=== PATIENT | male | born 1955 | race African-American/Black ===

== ENCOUNTER 2017-09-11 06:49 | Emergency (ER) | payer SELFPAY ==
--- NOTE | 2017-09-11 07:31 | ER Document Report ---
ED General - General Chief Complaint: Abscess Stated Complaint: ABCESS Time Seen by Provider: 09/11/17 07:30 Mode of Arrival: Ambulatory Information source: Patient TRAVEL OUTSIDE OF THE [place] IN LAST 30 DAYS: No - HPI Notes: 62-year-old man presents to the emergency room for complaints of a hardness to his left buttocks for the last week. Patient states his tried warm compresses [id number] ibuprofen and Tylenol without relief pain is 6 out of 10, throbbing achy. Patient states he has a history of abscesses. Been seen by a provider for this issue. Has not been any recent antibiotics. Denies fevers, chills, chest pain,palpitations, shortness of breath, dyspnea, nausea, vomiting, diarrhea, abdominal pain, hematuria,blurred vision, double vision, loss of vision, speech changes, LH, dizziness, syncope, headaches, wheezing, ST , URI, neck pain, weakness, bowel or bladder dysfunction, saddle anesthesia, numbness or tingling in bilateral upper or lower extremities equally, muscle paralysis, weakness in bilateral upper or lower extremities equally or rash. Denies IV drug use. - Related Data Allergies/Adverse Reactions: No Known Allergies Allergy (Verified 09/11/17 07:47) Past Medical History - General Information source: Patient - Social History Smoking Status: Unknown if Ever Smoked Family History: Reviewed & Not Pertinent - Past Medical History Cardiac Medical History: Reports: Hx Hypertension GI Medical History: Reports: Hx Gastroesophageal Reflux Disease, Hx Hepatitis Musculoskeltal Medical History: Reports Hx Arthritis, Reports Hx Gout - QUESTIONABLE Infectious Medical History: Reports: Hx Hepatitis - Immunizations Immunizations up to date: Yes Hx Diphtheria, Pertussis, Tetanus Vaccination: No Review of Systems - Review of Systems Constitutional: No symptoms reported EENT: No symptoms reported Cardiovascular: No symptoms reported Respiratory: No symptoms reported Gastrointestinal: No symptoms reported Genitourinary: No symptoms reported Male Genitourinary: No symptoms reported Musculoskeletal: No symptoms reported Skin: See HPI Hematologic/Lymphatic: No symptoms reported Neurological/Psychological: No symptoms reported Physical Exam - Vital signs Vitals: Temp Pulse Resp BP Pulse Ox 99.2 F 96 16 183/79 H 98 09/11/17 06:53 09/11/17 06:53 09/11/17 06:53 09/11/17 06:53 09/11/17 06:53 - Notes Notes: PHYSICAL EXAMINATION: GENERAL: Well-appearing, well-nourished and in no acute distress. HEAD: Atraumatic, normocephalic. EYES: Pupils equal round and reactive to light, extraocular movements intact, sclera anicteric, conjunctiva are normal. ENT: Nares patent, oropharynx clear without exudates. Moist mucous membranes. NECK: Normal range of motion, supple without lymphadenopathy LUNGS: Breath sounds clear to auscultation bilaterally and equal. No wheezes rales or rhonchi. HEART: Regular rate and rhythm without murmurs ABDOMEN: Soft, nontender, nondistended abdomen. No guarding, no rebound. No masses appreciated. Musculoskeletal: Normal range of motion, no pitting or edema. No cyanosis. NEUROLOGICAL: Cranial nerves grossly intact. Normal speech, normal gait. Normal sensory, motor exams PSYCH: Normal mood, normal affect. SKIN: Warm, Dry, normal turgor, no rashes or lesions noted. 4 cm x 3 cm area pain, erythema with warmth to touch with noted fluctuance. No surrounding erythema. No streaking or phlebitis noted. No drainage or open wounds. Course - Re-evaluation Re-evalutation: 09/11/17 12:06 62-year-old male presents for evaluation of abscess. Due to fluctuance noted on abscess, I&D is performed, wound culture was obtained approximately 10 cc of purulent drainage was expressed, inoculations broken up,. Packing was placed and gauze dressing placed over it. Advised to take antibiotic as directed, do not go swimming or leg. Apply heat compress 20 minutes on 20 minutes off several times a day. Return to the in 2 days for packing change. I have reevaluated this patient multiple times and no significant life threatening changes, no signs of toxicity, sepsis or peritonitis are noted. The patient and I have discussed the diagnosis and risks, and we agree with discharging home and close follow-up. We also discussed returning to the Emergency Department immediately if new or worsening symptoms occur with the understanding that symptoms and presentations can change. At this time will discharge with return precautions and follow-up recommendations. Verbal discharge instructions given a the bedside and opportunity for questions given. We have discussed the symptoms which are most concerning (e.g., saddle anesthesia, urinary or bowel incontinence or retention, changing or worsening pain) that necessitate immediate return. Medication warnings reviewed. Patient is in agreement with this plan and has verbalized understanding of return precautions and the need for primary care follow-up in the next 24-72 hours. Patient verbalized understanding of plan of care and agree with plan of care. - Vital Signs Vital signs: Temp Pulse Resp BP Pulse Ox 99.2 F 96 16 165/94 H 98 09/11/17 06:53 09/11/17 06:53 09/11/17 06:53 09/11/17 09:00 09/11/17 06:53 Procedures - Incision and Drainage Left Buttock Time completed: 08:20 Type: Simple Anesthetic type: 1% Lidocaine w/epi Blade size: 11 I&D procedure: Chlorprep applied Incision Method: Incision made by scalpel Amount/type of drainage: Purulent drainage Notes: 09/11/17 17:22 Patient given verbal consent for incision and drainage. Patient tolerated procedure without any incident. Discharge - Discharge Clinical Impression: Abscess, Encounter for incision and drainage procedure Condition: Good Disposition: HOME, SELF-CARE Instructions: Abscess ([facility]), Cephalexin ([facility]), Post Incision and Drainage, Trimethoprim-Sulfa ([facility]) Additional Instructions: Abscess You have an abscess (boil). This a pus-forming infection, usually due to staph. Some boils may be left to drain on their own, but most require lancing. From the time the tender lump first appears, it may be three or four days before the abscess is ready to kael. Local heat and rest help at this stage of treatment. An antibiotic may prevent spread of the infection. Once the abscess is opened, packing may be placed into it. This is done so pus is not sealed inside by premature closure of the cavity. The packing will be removed at your follow-up visit or you may be advised to remove it yourself at home. Sometimes this packing must be replaced a few times during healing. The wound will heal with surprisingly little scar. Depending on the size and location of an abscess, healing can take one to four weeks. You may shower and wash the area around the incision site two or three times a day. Antibiotics may be prescribed, but are usually not necessary after an abscess has been drained. If you develop fever, chilling, worsening pain, or increasing swelling in the area, call the doctor or return immediately. Return to the ER 2-3 days for wound packing. Take antibiotics as directed with food. Eat yogurt daily to prevent loose stool. Do not drive, drink alcohol or operate heavy machinery while taking [place]. Return immediately for any new or worsening symptoms. Follow up with primary care provider, call tomorrow to make followup appointment. Prescriptions: Cephalexin Monohydrate [Keflex 500 mg Capsule] 500 mg PO BID #20 capsule Sulfamethoxazole/Trimethoprim [Bactrim Ds Tablet] 1 each PO BID #20 tablet Referrals: COREEN LOPEZ MD [ACTIVE STAFF] - Follow up as needed
[2017-09-11] MEDS ORDERED: LIDOCAINE 1.5%/EPINEPHRINE INJ-PF 30 ML SDV INJ ONE ×2 (08:18→08:49)
[2017-09-11] MEDS ORDERED: HYDROCODONE/ACETAMINOPHEN 5-325 MG (6 TAB/ER DISP) PO PRN (08:19)
[2017-09-11] MEDS ORDERED: CLONIDINE HCL 0.1 MG TABLET PO ONE (08:22)
[2017-09-11 09:57] VITALS: BP 158/65
== END 2017-09-11 09:57 | disposition home or self-care (01) ==
LOC: ER 06:49
DX: L02.31 Cutaneous abscess of buttock (principal); I10 Essential (primary) hypertension
CPT/HCPCS: 99283; 87070; 87205; 87075; 87077; 10060; A6266; J3490

== ENCOUNTER 2017-09-13 09:12 | Emergency (ER) | payer SELFPAY ==
[2017-09-13 09:18] VITALS: BP 165/63
--- NOTE | 2017-09-13 09:54 | ER Document Report ---
HPI - HPI Patient complains to provider of: wound recheck Onset: Last week Onset/Duration: Better Pain Level: Denies Context: Patient states that he is here for packing removal from an abscess he had an incision and drainage performed on here recently. Patient states he has been compliant with taking his antibiotics. Patient denies any fever. Patient denies any history of MRSA. Patient states that the pain has improved and the amount of drainage has started to decrease from the wound. Associated Symptoms: denies: Fever Exacerbated by: Denies Relieved by: Denies Similar symptoms previously: Yes Recently seen / treated by doctor: Yes - ROS ROS below otherwise negative: Yes Systems Reviewed and Negative: Yes All other systems reviewed and negative - CONSTITUTIONAL Constitutional: DENIES: Fever, Chills - NEURO Neurology: DENIES: Weakness - GASTROINTESTINAL Gastrointestinal: DENIES: Nausea - DERM Skin Color: Normal Notes: Abscess to buttock Past Medical History - General Information source: Patient - Social History Smoking Status: Current Every Day Smoker Smoking Education Provided: Yes Frequency of alcohol use: Occasional Drug Abuse: None Occupation: Retired Family History: Reviewed & Not Pertinent - Past Medical History Cardiac Medical History: Reports: Hx Hypertension Renal/ Medical History: Denies: Hx Peritoneal Dialysis GI Medical History: Reports: Hx Gastroesophageal Reflux Disease, Hx Hepatitis Musculoskeltal Medical History: Reports Hx Arthritis, Reports Hx Gout - QUESTIONABLE Infectious Medical History: Reports: Hx Hepatitis Surgical Hx: Negative - Immunizations Immunizations up to date: Yes Hx Diphtheria, Pertussis, Tetanus Vaccination: No Vertical Provider Document - CONSTITUTIONAL Agree With Documented VS: Yes Exam Limitations: No Limitations General Appearance: WD/WN, No Apparent Distress - INFECTION CONTROL TRAVEL OUTSIDE OF THE [place] IN LAST 30 DAYS: No - HEENT HEENT: Atraumatic, Normocephalic - NECK Neck: Normal Inspection - RESPIRATORY Respiratory: No Respiratory Distress - BACK Back: Normal Inspection - MUSCULOSKELETAL/EXTREMETIES Musculoskeletal/Extremeties: MAEW - NEURO Level of Consciousness: Awake, Alert, Appropriate Motor/Sensory: No Motor Deficit - DERM Integumentary: Warm, Dry, Abscess - Resolving abscess to left buttock, minimal induration surrounding opening. Packing removed, minimal purulent drainage noted to dressing. No surrounding erythema. Course - Re-evaluation Re-evalutation: 09/13/17 09:49 Patient with resolving abscess, patient encouraged to finish out his antibiotics as previously prescribed. Discussed daily wound care. Discussed worsening symptoms that patient should return immediately for. - Vital Signs Vital signs: Temp Pulse Resp BP Pulse Ox 98.5 F 70 18 165/63 H 100 09/13/17 09:17 09/13/17 09:17 09/13/17 09:17 09/13/17 09:17 09/13/17 09:17 Discharge - Discharge Clinical Impression: Encounter for wound re-check Condition: Stable Disposition: HOME, SELF-CARE Instructions: Abscess ([facility]) Additional Instructions: Return immediately for any new or worsening symptoms Followup with your primary care provider, call tomorrow to make a followup appointment Continue taking your antibiotics as previously prescribed Keep wound covered as it continues to heal Forms: Smoking Cessation Education Referrals: [facility] [Provider Group] - Follow up as needed
== END 2017-09-13 10:08 | disposition home or self-care (01) ==
LOC: ER 09:12
DX: Z48.01 Encounter for change or removal of surgical wound dressing (principal); L02.31 Cutaneous abscess of buttock; I10 Essential (primary) hypertension; F17.200 Nicotine dependence, unspecified, uncomplicated
CPT/HCPCS: 99282

== ENCOUNTER 2018-02-07 07:53 | Emergency (ER) | payer SELFPAY ==
[2018-02-07 08:52] LABS: HEMATOCRIT 34.7 % (37.9-51.0); HEMOGLOBIN 11.6 g/dL (13.5-17.0); MEAN CORPUSCULAR HEMOGLOBIN 26.8 pg (27.0-33.4); MEAN CORPUSCULAR HGB CONC 33.5 g/dL (32.0-36.0); MEAN CORPUSCULAR VOLUME 80 fl (80-97); RED BLOOD COUNT 4.35 10^6/uL (4.35-5.55); RED CELL DISTRIBUTION WIDTH 20.6 % (11.5-14.0); WHITE BLOOD COUNT 6.1 10^3/uL (4.0-10.5)
[2018-02-07 08:55] LABS: APPEARANCE,URINE CLEAR; BILIRUBIN,URINE SMALL (NEGATIVE); COLOR,URINE AMBER; GLUCOSE, URINE NEGATIVE (NEGATIVE); KETONES,URINE NEGATIVE (NEGATIVE); LEUKOCYTE ESTERASE,URINE NEGATIVE (NEGATIVE); NITRITE,URINE NEGATIVE (NEGATIVE); PROTEIN,URINE 30 mg/dL (NEGATIVE)
--- NOTE | 2018-02-07 09:17 | ER Document Report ---
ED GI/ - General Information source: Patient TRAVEL OUTSIDE OF THE [place] IN LAST 30 DAYS: No <SANDRA OROPEZA - Last Filed: 02/07/18 09:25> <BRUCE GENAO - Last Filed: 02/07/18 15:45> - General Chief Complaint: Abdominal Pain Stated Complaint: ABDOMINAL PAIN/URINARY ISSUE Time Seen by Provider: 02/07/18 09:10 Notes: 63-year-old male who presents to the emergency department today with complaints of abdominal pain that began yesterday. Patient states he had a bowel movement before going to bed last night and he noticed that it was darker than it usually is. Patient states he feels bloated. Patient states the pain comes in waves and it is located in his lower abdomen. Patient states when he urinated here for a urine sample he noticed that his urine was very dark in color as well. Patient admits to being very noncompliant with his hypertension medicine stating it has been at least several days since he last took his medicine. ( SANDRA OROPEZA) - Related Data Allergies/Adverse Reactions: No Known Allergies Allergy (Verified 09/13/17 09:15) Past Medical History - General Information source: Patient - Social History Smoking Status: Current Every Day Smoker Cigarette use (# per day): Yes Chew tobacco use (# tins/day): No Frequency of alcohol use: Heavy - Alcoholic hepatitis Drug Abuse: None Lives with: Family Family History: Reviewed & Not Pertinent Patient has suicidal ideation: No Patient has homicidal ideation: No - Past Medical History Cardiac Medical History: Reports: Hx Hypertension GI Medical History: Reports: Hx Gastroesophageal Reflux Disease, Hx Hepatitis Musculoskeletal Medical History: Reports Hx Arthritis, Reports Hx Gout - QUESTIONABLE Infectious Medical History: Reports: Hx Hepatitis - Immunizations Immunizations up to date: Yes Hx Diphtheria, Pertussis, Tetanus Vaccination: No <SANDRA OROPEZA - Last Filed: 02/07/18 09:25> Review of Systems - Review of Systems Constitutional: No symptoms reported EENT: No symptoms reported Cardiovascular: No symptoms reported Respiratory: No symptoms reported Gastrointestinal: See HPI, Abdomen distended, Abdominal pain, Other - dark stool Genitourinary: See HPI, Other - dark urine Male Genitourinary: No symptoms reported Musculoskeletal: No symptoms reported Skin: No symptoms reported Hematologic/Lymphatic: No symptoms reported Neurological/Psychological: No symptoms reported -: Yes All other systems reviewed and negative <SANDRA OROPEZA - Last Filed: 02/07/18 09:25> Physical Exam <SANDRA OROPEZA - Last Filed: 02/07/18 09:25> <BRUCE GENAO - Last Filed: 02/07/18 15:45> - Vital signs Vitals: Temp Pulse Resp BP Pulse Ox 98.0 F 107 H 20 172/96 H 100 02/07/18 08:00 02/07/18 08:00 02/07/18 08:00 02/07/18 08:00 02/07/18 08:00 - Notes Notes: Physical Exam: General: Alert, appears well, EtOH odor on breath. HEENT: Normocephalic. Atraumatic. PERRL. Extraocular movements intact. Oropharynx clear. Neck: Supple. Non-tender. Respiratory: No respiratory distress. Clear and equal breath sounds bilaterally. Cardiovascular: Regular rate and rhythm. Abdominal: Mild abdominal distension. Hyperresonant percussive sounds on left side of abdomen, dull to percuss the right side of the abdomen. Normal Bowel Sounds. Back: Non-tender. No deformity or step off. Extremities: Moves all four extremities. Upper extremities: Normal inspection. Normal ROM. Lower extremities: Normal inspection. No edema. Normal ROM. Neurological: Normal cognition. AAOx4. Normal speech. Psychological: Normal affect. Normal Mood. Skin: Warm. Dry. Normal color. (SANDRA OROPEZA) Course - Laboratory Result Diagrams: 02/07/18 08:25 02/07/18 08:25 <SANDRA OROPEZA - Last Filed: 02/07/18 09:25> - Laboratory Result Diagrams: 02/07/18 08:25 02/07/18 09:30 - Diagnostic Test Radiology reviewed: Reports reviewed - Ultrasound shows some fluid in the right upper quadrant and severely cirrhotic liver. <BRUCE GENAO - Last Filed: 02/07/18 15:45> - Vital Signs Vital signs: Temp Pulse Resp BP Pulse Ox 98.0 F 107 H 15 145/80 H 99 02/07/18 08:00 02/07/18 08:00 02/07/18 14:01 02/07/18 14:00 02/07/18 14:01 - Laboratory Laboratory results interpreted by me: 02/07/18 02/07/18 02/07/18 08:25 08:25 08:25 Hgb 11.6 L Hct 34.7 L MCH 26.8 L RDW 20.6 H Plt Count 90 L Band Neutrophils % 1 L PT 18.4 H Potassium BUN Calcium Magnesium Total Bilirubin Direct Bilirubin AST Alkaline Phosphatase Albumin Urine Protein 30 H Urine Bilirubin SMALL H Urine Urobilinogen 4.0 H 02/07/18 09:30 Hgb Hct MCH RDW Plt Count Band Neutrophils % PT Potassium 3.0 L* BUN 6 L Calcium 8.2 L Magnesium 1.1 L* Total Bilirubin 3.8 H Direct Bilirubin 2.5 H AST 146 H Alkaline Phosphatase 193 H Albumin 3.2 L Urine Protein Urine Bilirubin Urine Urobilinogen Discharge <SANDRA OROPEZA - Last Filed: 02/07/18 09:25> <BRUCE GENAO - Last Filed: 02/07/18 15:45> - Discharge Clinical Impression: Alcoholic cirrhosis of liver with ascites, Elevated bilirubin Abdominal pain Qualifiers: Abdominal location: lower abdomen, unspecified Qualified Code(s): R10.30 - Lower abdominal pain, unspecified High blood pressure Qualifiers: Hypertension type: essential hypertension Qualified Code(s): I10 - Essential ( primary) hypertension Condition: Stable Disposition: HOME, SELF-CARE Additional Instructions: Abdominal Pain: There are many causes of abdominal pain. Pain can mean a serious problem requiring surgery (such as appendicitis). It can also be an innocent problem that goes away on its own (such as a viral infection). Often, time must pass to determine the cause of pain. The physician does not feel that hospitalization is necessary, at present. Things may change within the next 24 hours. Call the doctor or come back for re- examination if any problems occur, such as: (1) Pain that becomes more severe, steady, or becomes concentrated in one specific area. Also, pain that is more severe with movement or coughing. (2) Vomiting that persists or becomes more frequent. (3) Blood in the vomitus, urine, or bowel movements. Blood in the stool may have a tarry or black appearance. (4) Shaking chills or fever greater than 100 degrees F. (5) The abdomen becomes more distended or swollen. (6) Bowel movements cease. (7) Failure to improve as expected. High Blood Pressure: When your blood pressure was taken today it was elevated. Sometimes, stress or illness causes a temporary elevation of your blood pressure. We suggest that you get your blood pressure measured three more times during the next few days to see if this is more than a temporary abnormality. If your blood pressure is greater than 150/90 on each occasion, you must have treatment. If left untreated or inadequately treated, hypertension greatly enhances your risk for developing heart disease and strokes. Please don't ignore this problem. Cirrhosis: You have cirrhosis of the liver. The liver tissue is replaced by scar tissue. Most often, this is caused by alcoholism or chronic hepatitis. There may be no symptoms in early cirrhosis. Later, patients develop jaundice, swelling, and fluid in the abdomen. There is no cure for cirrhosis. Only the symptoms can be treated. Edema and fluid in the abdomen can be treated with diuretics (water pills). If cirrhosis is severe, you'll be restricted to a low-protein diet. Don't drink any alcohol. When medicines are prescribed for you, be sure the doctor understands you have cirrhosis. Call the doctor if you become increasingly yellow, vomit repeatedly, begin to bruise or bleed easily, or have worsening abdominal pain or increasing abdominal size. Your lab tests today show that your liver is beginning to fail. This is most likely due to your chronic alcohol abuse. If you stop drinking now, the liver has the ability to regenerate itself. You are close to reaching the point where your liver will not be able to recover. The urine appearing dark is most likely due to the elevated bilirubin which is a result of the liver failing. Your blood pressure was quite high today, and it has been on previous visits. You should follow-up with your primary care provider to ensure that your blood pressure is being adequately managed, and to discuss a detox program to help you stop drinking before your liver has been completely destroyed. RETURN TO THE EMERGENCY ROOM IF ANY NEW OR WORSENING SYMPTOMS. Referrals: LAINEY CARROLL DO [Primary Care Provider] - Follow up as needed Scribe Attestation: 02/07/18 09:53 I personally performed the services described in the documentation, reviewed and edited the documentation which was dictated to the scribe in my presence, and it accurately records my words and actions. (BRUCE GENAO) Scribe Documentation - Scribe Written by Maile:: Maile Faustin, 02/07/2018 0923 acting as scribe for :: Arcelia <SANDRA OROPEZA - Last Filed: 02/07/18 09:25>
[2018-02-07 09:33] LABS: INTERNATIONAL RATION (INR) 1.45; PROTHROMBIN TIME 18.4 SEC (11.4-15.4)
[2018-02-07 09:35] LABS: PLATELET COUNT 90 10^3/uL (150-450)
[2018-02-07 09:40] LABS: ABSOLUTE LYMPHOCYTES# (MANUAL) 2.1 10^3/uL (0.5-4.7); ABSOLUTE MONOCYTES # (MANUAL) 0.3 10^3/uL (0.1-1.4); ABSOLUTE NEUTROPHILS# (MANUAL) 3.7 10^3/uL (1.7-8.2); ANISOCYTOSIS 2+; BAND NEUTROPHILS % (MANUAL) 1 % (3-5); BASOPHILS % (MANUAL) 1 % (0-2); EOSINOPHILS % (MANUAL) 0 % (0-6); HYPOCHROMASIA 3+; LYMPHOCYTES % (MANUAL) 34 % (13-45); MONOCYTES % (MANUAL) 5 % (3-13); PLATELET COMMENT DECREASED; PLATELET LARGE PRESENT; POLYCHROMASIA SLIGHT; SEGMENTED NEUTROPHILS % (MAN) 59 % (42-78); TARGET CELLS 3+; TOTAL CELLS COUNTED 100
[2018-02-07] MEDS ORDERED: ONDANSETRON HCL INJ/PF 4 MG/2 ML SDV IV ONE (09:59)
[2018-02-07 10:03] LABS: ALANINE AMINOTRANSFERASE 37 U/L (21-72); ALBUMIN 3.2 g/dL (3.5-5.0); ALCOHOL 83 mg/dL (NONE DETECTED); ALKALINE PHOSPHATASE 193 U/L (38-126); ANION GAP 14 (5-19); ASPARTATE AMINO TRANSFERASE 146 U/L (17-59); BILIRUBIN,DIRECT 2.5 mg/dL (0.0-0.4); BILIRUBIN,TOTAL 3.8 mg/dL (0.2-1.3); BLOOD UREA NITROGEN 6 mg/dL (7-20); CALCIUM 8.2 mg/dL (8.4-10.2); CARBON DIOXIDE 26 mmol/L (22-30); CHLORIDE 105 mmol/L (98-107); GLUCOSE 76 mg/dL (75-110); LIPASE 262.8 U/L (23-300); SODIUM 144.7 mmol/L (137-145)
[2018-02-07] MEDS ORDERED: POTASSIUM CHLORIDE 20 MEQ/15 ML UDCUP PO ONE (10:08)
[2018-02-07] MEDS ORDERED: MAGNESIUM SULFATE/D5W 1 GM/100 ML RTUPB IV ONE (10:08)
--- NOTE | 2018-02-07 11:05 | RADIOLOGY REPORT (SQ) ---
EXAM DESCRIPTION: ACUTE ABDOMEN SERIES COMPLETED DATE/TIME: 02/07/2018 10:14 am REASON FOR STUDY: Abdominal pain with bloating COMPARISON: CT abdomen pelvis 04/18/2014, 06/01/2015, 12/15/2015 NUMBER OF VIEWS: Three views. TECHNIQUE: Frontal chest, supine abdomen and upright abdomen radiographic images acquired. LIMITATIONS: None. FINDINGS: CHEST: Lungs clear of infiltrates. Cardiac silhouette size, loy unremarkable FREE AIR: None. No abnormal gas collections. BOWEL GAS PATTERN: Nonobstructive pattern. No dilated loops or air fluid levels. CALCIFICATIONS: No suspicious calcifications. HARDWARE: None in the abdomen. SOFT TISSUES: No gross mass or suggestion of organomegaly. BONES: No acute fracture. No worrisome bone lesions. OTHER: No other significant finding. IMPRESSION: NO RADIOGRAPHIC EVIDENCE FOR ACUTE ABDOMINAL DISEASE. TECHNICAL DOCUMENTATION: JOB ID: [id number] [employer]- All Rights Reserved Reading location - IP/workstation name: [email or web address]
--- NOTE | 2018-02-07 15:37 | RADIOLOGY REPORT (SQ) ---
EXAM DESCRIPTION: U/S ABDOMEN LIMITED W/O DOP COMPLETED DATE/TIME: 02/07/2018 3:20 pm REASON FOR STUDY: Elevated bilirubin COMPARISON: CT abdomen pelvis 04/18/2014, 01/13/2015, 06/01/2015, 12/15/2015 TECHNIQUE: Dynamic and static grayscale images acquired of the abdomen and recorded on PACS. Additio nal selected color Doppler and spectral images recorded. LIMITATIONS: Midline bowel gas FINDINGS: PANCREAS: Midline pancreas unremarkable LIVER: Coarse echotexture with increased echogenicity from diffuse hepatocellular disease. Difficult to penetrate with the ultrasound energy from fatty infiltration. No gross masses. No intrahepatic biliary ductal dilatation. Antegrade portal venous flow LIVER VASCULATURE: Normal directional flow of the main portal vein and hepatic veins. GALLBLADDER: Pericholecystic fluid is present between the gallbladder and liver. There is a small am ount of right upper quadrant ascites. No gallstones. Moderate diffuse gallbladder wall thickening, nonspecific in the setting of ascites ULTRASOUND-DETECTED AREVALO'S SIGN: Negative. INTRAHEPATIC DUCTS AND COMMON DUCT: CBD and intrahepatic ducts normal caliber. No filling defects. INFERIOR VENA CAVA: Not well seen due to limited acoustic window through the liver AORTA: Not well seen due to midline bowel gas RIGHT KIDNEY: Normal size. Normal echogenicity. No solid or suspicious masses. No hydronephrosis. No calcifications. PERITONEAL AND RIGHT PLEURAL SPACE: Small amount of right upper quadrant free fluid. OTHER: Findings discussed with Dr. Paniagua IMPRESSION: Small amount of ascites in the right upper quadrant Echogenic liver with coarse echotexture from diffuse hepatocellular disease. Gallbladder wall thickening and pericholecystic fluid are nonspecific in the setting of ascites and c irrhosis. No gallstones. No biliary ductal dilatation. TECHNICAL DOCUMENTATION: JOB ID: [id number]- All Rights Reserved Reading location - IP/workstation name: [email or web address]
[2018-02-07 16:18] VITALS: BP 149/82
[2018-02-08 09:35] LABS: PATH REVIEW PATHOLOGIST REVIEWED
== END 2018-02-07 16:17 | disposition home or self-care (01) ==
LOC: ER 07:53
DX: K70.31 Alcoholic cirrhosis of liver with ascites (principal); R10.30 Lower abdominal pain, unspecified; I10 Essential (primary) hypertension; K21.9 Gastro-esophageal reflux disease without esophagitis; M19.90 Unspecified osteoarthritis, unspecified site; F17.200 Nicotine dependence, unspecified, uncomplicated
CPT/HCPCS: 99284; 96375; 96365; 36415; 80307; 83690; 83735; 85025; 85610; 80053; 81001; 74022; 76705; J3475; J2405

== ENCOUNTER 2018-11-05 14:59 | Emergency (ER) | payer SELFPAY ==
--- NOTE | 2018-11-05 16:24 | ER Document Report ---
ED Medical Screen (RME) - General Chief Complaint: Weakness Stated Complaint: WEAKNESS Time Seen by Provider: 11/05/18 16:23 Primary Care Provider: LAINEY CARROLL DO [Primary Care Provider] - Follow up as needed Mode of Arrival: Wheelchair Information source: Patient Notes: Patient is a 63-year-old male, alcoholic, who presents with generalized weakness, including fall today. Patient reports pain everywhere. TRAVEL OUTSIDE OF THE [place] IN LAST 30 DAYS: No - Related Data Allergies/Adverse Reactions: No Known Allergies Allergy (Verified 11/05/18 15:15) Past Medical History - General Information source: Patient - Past Medical History Cardiac Medical History: Reports: Hx Hypertension Renal/ Medical History: Denies: Hx Peritoneal Dialysis GI Medical History: Reports: Hx Gastroesophageal Reflux Disease, Hx Hepatitis Musculoskeltal Medical History: Reports Hx Arthritis, Reports Hx Gout - QUESTIONABLE Infectious Medical History: Reports: Hx Hepatitis - Immunizations Immunizations up to date: Yes Hx Diphtheria, Pertussis, Tetanus Vaccination: No Review of Systems - Review of Systems Constitutional: See HPI Musculoskeletal: See HPI Neurological/Psychological: See HPI Physical Exam - Vital signs Vitals: Temp Pulse Resp BP Pulse Ox 98.4 F 105 H 16 140/53 H 97 11/05/18 15:44 11/05/18 15:44 11/05/18 15:44 11/05/18 15:44 11/05/18 15:44 - Notes Notes: PHYSICAL EXAMINATION: GENERAL: Chronically ill-appearing and in no acute distress. LUNGS: CTAB and equal. No wheezes rales or rhonchi. HEART: Regular rate and rhythm without murmurs Course - Vital Signs Vital signs: Temp Pulse Resp BP Pulse Ox 98.4 F 105 H 16 140/53 H 97 11/05/18 15:44 11/05/18 15:44 11/05/18 15:44 11/05/18 15:44 11/05/18 15:44 - Laboratory Result Diagrams: 11/05/18 16:40 11/05/18 16:40 Laboratory results interpreted by me: 11/05/18 11/05/18 11/05/18 16:40 16:40 16:40 RBC 2.73 L Hgb 5.2 L Hct 17.8 L MCV 65 L MCH 19.0 L MCHC 29.2 L RDW 20.7 H Sodium 133.8 L Potassium 3.2 L Carbon Dioxide 20 L BUN 6 L Glucose 118 H Calcium 8.1 L Total Bilirubin 2.2 H Direct Bilirubin 1.4 H AST 113 H Alkaline Phosphatase 137 H Creatine Kinase 186 H Albumin 2.9 L Lipase 644.6 H Urine Protein >=500 H Urine Glucose (UA) 50 H Urine Blood LARGE H Crossmatch 11/05/18 19:56 RBC Hgb Hct MCV MCH MCHC RDW Sodium Potassium Carbon Dioxide BUN Glucose Calcium Total Bilirubin Direct Bilirubin AST Alkaline Phosphatase Creatine Kinase Albumin Lipase Urine Protein Urine Glucose (UA) Urine Blood Crossmatch See Detail Doctor's Discharge - Discharge Clinical Impression: Anemia, Elevated bilirubin, Elevated LFTs, Hematuria, Elevated lipase, Medical non-compliance, Hypokalemia Condition: Stable Disposition: [facility] Referrals: LAINEY CARROLL DO [Primary Care Provider] - Follow up as needed
[2018-11-05 17:18] LABS: HEMATOCRIT 17.8 % (37.9-51.0); MEAN CORPUSCULAR HGB CONC 29.2 g/dL (32.0-36.0); PLATELET COUNT 215 10^3/uL (150-450); RED BLOOD COUNT 2.73 10^6/uL (4.35-5.55); RED CELL DISTRIBUTION WIDTH 20.7 % (11.5-14.0); WHITE BLOOD COUNT 6.3 10^3/uL (4.0-10.5)
[2018-11-05 17:31] LABS: ALANINE AMINOTRANSFERASE 42 U/L (21-72); ALBUMIN 2.9 g/dL (3.5-5.0); ALKALINE PHOSPHATASE 137 U/L (38-126); ANION GAP 11 (5-19); ASPARTATE AMINO TRANSFERASE 113 U/L (17-59); BILIRUBIN,DIRECT 1.4 mg/dL (0.0-0.4); BILIRUBIN,TOTAL 2.2 mg/dL (0.2-1.3); BLOOD UREA NITROGEN 6 mg/dL (7-20); CALCIUM 8.1 mg/dL (8.4-10.2); CARBON DIOXIDE 20 mmol/L (22-30); CHLORIDE 103 mmol/L (98-107); CREATINE KINASE 186 U/L (55-170); GLUCOSE 118 mg/dL (75-110); POTASSIUM 3.2 mmol/L (3.6-5.0); TOTAL PROTEIN 7.4 g/dL (6.3-8.2)
[2018-11-05 17:33] LABS: HEMOGLOBIN 5.2 g/dL (13.5-17.0)
--- NOTE | 2018-11-05 17:33 | RADIOLOGY REPORT (SQ) ---
EXAM DESCRIPTION: CHEST SINGLE VIEW COMPLETED DATE/TIME: 11/05/2018 5:05 pm REASON FOR STUDY: cp COMPARISON: None. EXAM PARAMETERS: NUMBER OF VIEWS: One view. TECHNIQUE: Single frontal radiographic view of the chest acquired. RADIATION DOSE: NA LIMITATIONS: None. FINDINGS: LUNGS AND PLEURA: No opacities, masses or pneumothorax. No pleural effusion. MEDIASTINUM AND HILAR STRUCTURES: No masses. Contour normal. HEART AND VASCULAR STRUCTURES: Heart normal in size. Normal vasculature. BONES: No acute findings. HARDWARE: None in the chest. OTHER: No other significant finding. IMPRESSION: NO ACUTE RADIOGRAPHIC FINDING IN THE CHEST. TECHNICAL DOCUMENTATION: JOB ID: [id number] [employer]- All Rights Reserved Reading location - IP/workstation name: [email or web address]
[2018-11-05 17:40] LABS: BILIRUBIN,URINE NEGATIVE (NEGATIVE); GLUCOSE, URINE 50 mg/dL (NEGATIVE); KETONES,URINE NEGATIVE (NEGATIVE); LEUKOCYTE ESTERASE,URINE NEGATIVE (NEGATIVE); NITRITE,URINE NEGATIVE (NEGATIVE); PROTEIN,URINE >=500 mg/dL (NEGATIVE); URINE SPECIFIC GRAVITY 1.015; UROBILINOGEN,URINE NEGATIVE mg/dL (<2.0)
[2018-11-05 17:41] LABS: APPEARANCE,URINE TURBID; COLOR,URINE RED
[2018-11-05 17:43] LABS: ABSOLUTE MONOCYTES # (MANUAL) 0.4 10^3/uL (0.1-1.4); BASOPHILS % (MANUAL) 0 % (0-2); CREATINE KINASE MB 0.26 ng/mL (<4.55); EOSINOPHILS % (MANUAL) 0 % (0-6); LYMPHOCYTES % (MANUAL) 30 % (13-45); MONOCYTES % (MANUAL) 6 % (3-13); NUCLEATED RED BLOOD CELLS 1 /100 WBC (0); SEGMENTED NEUTROPHILS % (MAN) 62 % (42-78); TOTAL CELLS COUNTED 100
[2018-11-05 17:45] LABS: TROPONIN I < 0.012 ng/mL
[2018-11-05 17:48] LABS: ANISOCYTOSIS 2+; HYPOCHROMASIA 3+; MEAN CORPUSCULAR VOLUME 65 fl (80-97); POIKILOCYTOSIS SLIGHT; POLYCHROMASIA 1+; SCHISTOCYTES SLIGHT; TARGET CELLS 2+; TEAR DROP CELLS SLIGHT
[2018-11-05 17:49] LABS: PLATELET COMMENT ADEQUATE
[2018-11-05] MEDS ORDERED: NORMAL SALINE 250 ML IV PRN ×2 (19:12)
--- NOTE | 2018-11-05 19:34 | ER Document Report ---
ED General - General Chief Complaint: Weakness Stated Complaint: WEAKNESS Time Seen by Provider: 11/05/18 16:23 Primary Care Provider: LAINEY CARROLL DO [Primary Care Provider] - Follow up as needed TRAVEL OUTSIDE OF THE [place] IN LAST 30 DAYS: No - HPI Notes: Patient is a 63-year-old male that presents to the emergency department for chief complaint of hematuria and generalized weakness. Patient reports increasing fatigue over the last few months but significantly worse in the last 3 days. He states for the last week he has had large blood clots passing in his urine. He does have a history of hematuria and states he saw a urologist about 6 months ago but does not know what he was told and did not follow-up. Patient states today he felt so fatigued while walking he co llapsed down to the ground. He denied head injury during the fall. He states he currently is not having any pain. He denies any black or bloody stools. He does drink alcohol daily and reports his last drink was yesterday. Patient denies history of esophageal varices. He does believe he has had bleeding in his GI tract before but does not believe he is having any bleeding currently. He denies any nausea vomiting or hematemesis. He denies cough and congestion. Patient states he has not seen a primary care doctor in a long time and has been out of his blood pressure medication for the last few months at least. Past Medical History: Alcoholism, hypertension Past Surgical History: Reviewed in chart Social History: Chronic alcoholism. Denies drug use Family History: Reviewed and noncontributory for presenting illness Allergies: Reviewed, see documented allergy list. REVIEW OF SYSTEMS: CONSTITUTIONAL : No fever No chills No diaphoresis No recent illness EENT: No vision changes No congestion No sore throat CARDIOVASCULAR: No chest pain No palpitations RESPIRATORY: shortness of breath No cough No difficulty breathing GASTROINTESTINAL: No abdominal pain No nausea No vomiting No diarrhea GENITOURINARY: No dysuria hematuria No difficulty urinating MUSCULOSKELETAL: No back pain No leg pain No arm pain SKIN: No rashes No lesions LYMPHATIC: No swollen, enlarged glands. NEUROLOGICAL: No lightheadedness No headache No weakness No paresthesias PSYCHIATRIC: No anxiety No depression PHYSICAL EXAMINATION: Vital signs reviewed, nursing noted reviewed. GENERAL: Well-appearing, thin, and in no acute distress. HEAD: Atraumatic, normocephalic. EYES: Eyes appear normal, extraocular movements intact, sclera anicteric, conj unctiva are normal. ENT: nares patent, oropharynx clear without exudates. Mildly dry mucous membra kristian. NECK: Normal range of motion, supple without lymphadenopathy LUNGS: Breath sounds clear to auscultation bilaterally and equal. No wheezes rales or rhonchi. HEART: Tachycardic rate and regular pale rhythm without murmurs ABDOMEN: Soft, nontender, normoactive bowel sounds. No rebound, guarding, or rigidity. No masses appreciated. EXTREMITIES: Nontender, good range of motion, no pitting or edema. : Small nonthrombosed and nonbleeding external hemorrhoid, light brown stool Hemoccult negative NEUROLOGICAL: No focal neurological deficits. Moves all extremities spontaneously Motor and sensory grossly intact on exam. PSYCH: Normal mood, normal affect. SKIN: Warm, Dry, normal turgor, pale - Related Data Allergies/Adverse Reactions: No Known Allergies Allergy (Verified 11/05/18 15:15) Past Medical History - Social History Smoking Status: Never Smoker Chew tobacco use (# tins/day): No Frequency of alcohol use: None Drug Abuse: None Family History: Reviewed & Not Pertinent Patient has suicidal ideation: No Patient has homicidal ideation: No - Past Medical History Cardiac Medical History: Reports: Hx Hypertension Renal/ Medical History: Denies: Hx Peritoneal Dialysis GI Medical History: Reports: Hx Gastroesophageal Reflux Disease, Hx Hepatitis Musculoskeletal Medical History: Reports Hx Arthritis, Reports Hx Gout - QUESTIONABLE Infectious Medical History: Reports: Hx Hepatitis - Immunizations Immunizations up to date: Yes Hx Diphtheria, Pertussis, Tetanus Vaccination: No Physical Exam - Vital signs Vitals: Temp Pulse Resp BP Pulse Ox 98.4 F 105 H 16 140/53 H 97 11/05/18 15:44 11/05/18 15:44 11/05/18 15:44 11/05/18 15:44 11/05/18 15:44 Course - Re-evaluation Re-evalutation: 11/05/18 19:32 Vitals reviewed. Nursing notes reviewed. Patient blood work shows a significant anemia at 5.2. This is dramatic change from previous I have had on record. He denies any symptoms of GI bleeding and does have a negative Hemoccult in the emergency room. Patient has a large amount of blood in his urine and has been passing blood clots in his urine for the last week. I do believe at this point this is his source of bleeding causing his severe anemia. Patient is mildly tachycardic with dry mucous membranes. He was given 3 units packed red blood cells for his anemia. He is otherwise awake and mentating appropriately without delirium or altered mentation. He denies any history of alcohol withdrawal seizures or delirium. Patient is not currently in acute alcohol withdrawal. There is no urology available at this facility and patient is requiring transfer for urological evaluation of his significant hematuria. Laboratory 11/05/18 11/05/18 11/05/18 16:40 16:40 16:40 WBC 6.3 RBC 2.73 L Hgb 5.2 L Hct 17.8 L MCV 65 L MCH 19.0 L MCHC 29.2 L RDW 20.7 H Plt Count 215 Total Counted 100 Seg Neutrophils % Not Reportable Seg Neuts % (Manual) 62 Lymphocytes % Not Reportable Lymphocytes % (Manual) 30 Atypical Lymphs % 2 Monocytes % Not Reportable Monocytes % (Manual) 6 Eosinophils % Not Reportable Eosinophils % (Manual) 0 Basophils % Not Reportable Basophils % (Manual) 0 Absolute Neutrophils Not Reportable Abs Neuts (Manual) 3.9 Absolute Lymphocytes Not Reportable Abs Lymphs (Manual) 2.0 Absolute Monocytes Not Reportable Abs Monocytes (Manual) 0.4 Absolute Eosinophils Not Reportable Absolute Eos (Manual) 0.0 Absolute Basophils Not Reportable Abs Basophils (Manual) 0.0 Nucleated RBCs 1 Platelet Comment ADEQUATE Polychromasia 1+ Hypochromasia 3+ Poikilocytosis SLIGHT Anisocytosis 2+ Microcytosis 3+ Target Cells 2+ Tear Drop Cells SLIGHT Schistocytes SLIGHT Sodium 133.8 L Potassium 3.2 L Chloride 103 Carbon Dioxide 20 L Anion Gap 11 BUN 6 L Creatinine 0.89 Est GFR ( Amer) > 60 Est GFR (Non-Af Amer) > 60 Glucose 118 H Calcium 8.1 L Total Bilirubin 2.2 H Direct Bilirubin 1.4 H Neonat Total Bilirubin Not Reportable Neonat Direct Bilirubin Not Reportable Neonat Indirect Bili Not Reportable AST 113 H ALT 42 Alkaline Phosphatase 137 H Creatine Kinase 186 H CK-MB (CK-2) 0.26 Troponin I < 0.012 Total Protein 7.4 Albumin 2.9 L Lipase 644.6 H Urine Color Urine Appearance Urine pH Ur Specific [place] Urine Protein Urine Glucose (UA) Urine Ketones Urine Blood Urine Nitrite Urine Bilirubin Urine Urobilinogen Ur Leukocyte Esterase Urine WBC (Auto) Urine RBC (Auto) Urine Ascorbic Acid 11/05/18 16:40 WBC RBC Hgb Hct MCV MCH MCHC RDW Plt Count Total Counted Seg Neutrophils % Seg Neuts % (Manual) Lymphocytes % Lymphocytes % (Manual) Atypical Lymphs % Monocytes % Monocytes % (Manual) Eosinophils % Eosinophils % (Manual) Basophils % Basophils % (Manual) Absolute Neutrophils Abs Neuts (Manual) Absolute Lymphocytes Abs Lymphs (Manual) Absolute Monocytes Abs Monocytes (Manual) Absolute Eosinophils Absolute Eos (Manual) Absolute Basophils Abs Basophils (Manual) Nucleated RBCs Platelet Comment Polychromasia Hypochromasia Poikilocytosis Anisocytosis Microcytosis Target Cells Tear Drop Cells Schistocytes Sodium Potassium Chloride Carbon Dioxide Anion Gap BUN Creatinine Est GFR ( Amer) Est GFR (Non-Af Amer) Glucose Calcium Total Bilirubin Direct Bilirubin Neonat Total Bilirubin Neonat Direct Bilirubin Neonat Indirect Bili AST ALT Alkaline Phosphatase Creatine Kinase CK-MB (CK-2) Troponin I Total Protein Albumin Lipase Urine Color RED Urine Appearance TURBID Urine pH 7.0 Ur Specific [place] 1.015 Urine Protein >=500 H Urine Glucose (UA) 50 H Urine Ketones NEGATIVE Urine Blood LARGE H Urine Nitrite NEGATIVE Urine Bilirubin NEGATIVE Urine Urobilinogen NEGATIVE Ur Leukocyte Esterase NEGATIVE Urine WBC (Auto) 27 Urine RBC (Auto) >182 Urine Ascorbic Acid NEGATIVE Chest X-Ray 11/05/18 16:24 IMPRESSION: NO ACUTE RADIOGRAPHIC FINDING IN THE CHEST. 11/05/18 20:25 Patient's care was discussed with Dr. Hudson Olvera, urology at [facility] who agrees patient is requiring cystoscopy and agrees to see him on consultation to perform procedures but requests patient be admitted to the medicine service. I discussed his care with Dr. Carrillo, hospitalist service who accepts patient for transfer. 11/05/18 22:08 Patient reevaluated and is still mentating appropriately. Blood pressure is stable at 130/58. He has had gross hematuria without clots. He is not having any urinary retention currently. Patient's blood transfusion is now ready and will be started shortly. Heart rate is 100. Patient still stable for transfer. 11/06/18 02:14 Patient is tolerating blood transfusion well. His tachycardia has improved. Heart rate 95 currently. Blood pressures remained stable at 139/61. Patient is still stable for transfer. - Vital Signs Vital signs: Temp Pulse Resp BP Pulse Ox 99.0 F 98 20 125/61 100 11/06/18 01:03 11/06/18 01:30 11/06/18 01:30 11/06/18 01:15 11/06/18 01:30 - Laboratory Result Diagrams: 11/05/18 16:40 11/05/18 16:40 Laboratory results interpreted by me: 11/05/18 11/05/18 11/05/18 16:40 16:40 16:40 RBC 2.73 L Hgb 5.2 L Hct 17.8 L MCV 65 L MCH 19.0 L MCHC 29.2 L RDW 20.7 H PT Sodium 133.8 L Potassium 3.2 L Carbon Dioxide 20 L BUN 6 L Glucose 118 H Calcium 8.1 L Total Bilirubin 2.2 H Direct Bilirubin 1.4 H AST 113 H Alkaline Phosphatase 137 H Creatine Kinase 186 H Albumin 2.9 L Lipase 644.6 H Urine Protein >=500 H Urine Glucose (UA) 50 H Urine Blood LARGE H Crossmatch 11/05/18 11/05/18 19:56 19:56 RBC Hgb Hct MCV MCH MCHC RDW PT 20.1 H Sodium Potassium Carbon Dioxide BUN Glucose Calcium Total Bilirubin Direct Bilirubin AST Alkaline Phosphatase Creatine Kinase Albumin Lipase Urine Protein Urine Glucose (UA) Urine Blood Crossmatch See Detail Critical Care Note - Critical Care Note Total time excluding time spent on procedures (mins): 45 Comments: Critical care time 45 exclusive from separate billable procedures for a patient requiring complex medical decision making, and high potential for clinical deterioration. Time spent obtaining history from patient or surrogate, discussions with consultants, development of treatment plan with patient or surrogate, evaluation of patient's response to treatment, examination of patient, ordering and performing treatments and interventions, ordering and review of laboratory studies, re-evaluation of patient's condition, ordering and review of radiographic studies and review of old charts Discharge - Discharge Clinical Impression: Elevated bilirubin, Elevated LFTs, Elevated lipase, Medical non-compliance, Hypokalemia Anemia Qualifiers: Anemia type: other cause Other causes of anemia: other cause, not classified Qualified Code(s): D64.89 - Other specified anemias Hematuria Qualifiers: Hematuria type: unspecified type Qualified Code(s): R31.9 - Hematuria, unspecified Condition: Stable Disposition: [facility] Referrals: LAINEY CARROLL DO [Primary Care Provider] - Follow up as needed
[2018-11-05] MEDS ORDERED: POTASSIUM CHLORIDE 10 MEQ CAPSULE.ER PO ONE ×2 (19:35→22:47)
[2018-11-05 21:34] LABS: INTERNATIONAL RATION (INR) 1.69; PROTHROMBIN TIME 20.1 SEC (11.4-15.4)
[2018-11-05] MEDS ORDERED: ACETAMINOPHEN 325 MG TABLET PO ONE (22:32)
--- NOTE | 2018-11-05 23:20 | EKG REPORT ---
SEVERITY:- ABNORMAL ECG - SINUS TACHYCARDIA NONSPECIFIC T ABNORMALITIES, LATERAL LEADS BORDERLINE PROLONGED QT INTERVAL LVH : Confirmed by: Crystal Limon 05-Nov-2018 23:19:43
[2018-11-06 00:38] LABS: URINE AMPHETAMINES SCREEN NEGATIVE; URINE BARBITURATES SCREEN NEGATIVE; URINE BENZODIAZEPINES SCREEN NEGATIVE; URINE COCAINE SCREEN NEGATIVE; URINE MARIJUANA (THC) SCREEN NEGATIVE; URINE METHADONE SCREEN NEGATIVE; URINE PHENCYCLIDINE SCREEN NEGATIVE
[2018-11-06 08:47] LABS: HEMATOCRIT 26.3 % (37.9-51.0); MEAN CORPUSCULAR HEMOGLOBIN 23.5 pg (27.0-33.4); MEAN CORPUSCULAR HGB CONC 32.6 g/dL (32.0-36.0); PLATELET COUNT 155 10^3/uL (150-450); RED BLOOD COUNT 3.65 10^6/uL (4.35-5.55); RED CELL DISTRIBUTION WIDTH 24.9 % (11.5-14.0); WHITE BLOOD COUNT 4.8 10^3/uL (4.0-10.5)
[2018-11-06 09:00] LABS: HEMOGLOBIN 8.6 g/dL (13.5-17.0); MEAN CORPUSCULAR VOLUME 72 fl (80-97)
[2018-11-06 09:10] LABS: ABSOLUTE LYMPHOCYTES# (MANUAL) 1.1 10^3/uL (0.5-4.7); ABSOLUTE MONOCYTES # (MANUAL) 0.4 10^3/uL (0.1-1.4); BAND NEUTROPHILS % (MANUAL) 1 % (3-5); BASOPHILS % (MANUAL) 0 % (0-2); EOSINOPHILS % (MANUAL) 2 % (0-6); LYMPHOCYTES % (MANUAL) 22 % (13-45); MONOCYTES % (MANUAL) 8 % (3-13); NUCLEATED RED BLOOD CELLS 1 /100 WBC (0); SEGMENTED NEUTROPHILS % (MAN) 67 % (42-78); TOTAL CELLS COUNTED 100
[2018-11-06 09:11] LABS: ANISOCYTOSIS 3+; HYPOCHROMASIA 2+; OVALOCYTES SLIGHT; PLATELET COMMENT ADEQUATE; POIKILOCYTOSIS SLIGHT; POLYCHROMASIA SLIGHT; TARGET CELLS 2+
[2018-11-06 11:52] VITALS: BP 121/67
--- NOTE | 2018-11-06 11:55 | ER Document Report ---
Doctor's Note Notes: 11/06/18 11:54 Awaiting transport. Transport has arrived. Going to see the urologist at [facility]. [facility] transportation is here to transfer the patient. Patient is currently in no pain. Vital signs are stable.
[2018-11-06 12:52] LABS: PATH REVIEW PATHOLOGIST REVIEWED
== END 2018-11-06 12:07 | disposition short-term general hospital (02) ==
LOC: ER 14:59
DX: E80.6 Other disorders of bilirubin metabolism (principal); R79.89 Other specified abnormal findings of blood chemistry; R74.8 Abnormal levels of other serum enzymes; E87.6 Hypokalemia; Z91.14 Patient's other noncompliance with medication regimen; D64.89 Other specified anemias; R31.9 Hematuria, unspecified; R53.1 Weakness; R53.83 Other fatigue; I10 Essential (primary) hypertension
CPT/HCPCS: 93005; 99285; 86900; 86901; 36415; 82553; 36430; 86850; 80307 ×2; 82550; 83690; 85025; 85610; 85730; 80053; 81001; 84484; 86920; 71045; 93010; P9016

== ENCOUNTER 2019-01-20 08:51 | Emergency (ER) | payer SELFPAY ==
[2019-01-20] MEDS ORDERED: ASPIRIN 81 MG TABLET, CHEWABLE PO ONE (09:16)
--- NOTE | 2019-01-20 09:30 | ER Document Report ---
ED Medical Screen (RME) - General Chief Complaint: Chest Pain Stated Complaint: CHEST PAIN Time Seen by Provider: 01/20/19 09:23 Primary Care Provider: LAINEY CARROLL DO [Primary Care Provider] - Follow up as needed Information source: Patient Notes: Patient presents complaining of chest pain that started around 430 this morning. Patient reports chest pain in the midsternal area that is worse with palpation. Patient also complains of abdominal bloating nausea vomiting and diarrhea. Pat ient denies any fever cough or cold symptoms. hx: Hypertension, cirrhosis I have greeted and performed a rapid initial assessment of this patient. A comprehensive ED assessment and evaluation of the patient, analysis of test results and completion of the medical decision making process will be conducted by additional ED providers. TRAVEL OUTSIDE OF THE [place] IN LAST 30 DAYS: No - Related Data Allergies/Adverse Reactions: No Known Allergies Allergy (Verified 01/20/19 09:07) Past Medical History - Social History Frequency of alcohol use: every day - Past Medical History Cardiac Medical History: Reports: Hx Hypertension Renal/ Medical History: Denies: Hx Peritoneal Dialysis GI Medical History: Reports: Hx Gastroesophageal Reflux Disease, Hx Hepatitis Musculoskeltal Medical History: Reports Hx Arthritis, Reports Hx Gout - QUESTIONABLE Infectious Medical History: Reports: Hx Hepatitis - Immunizations Immunizations up to date: Yes Hx Diphtheria, Pertussis, Tetanus Vaccination: No Physical Exam - Vital signs Vitals: Temp Pulse Resp BP Pulse Ox 98.2 F 104 H 15 183/74 H 100 01/20/19 09:15 01/20/19 09:15 01/20/19 09:15 01/20/19 09:15 01/20/19 09:15 - Cardiovascular Rhythm: Regular Heart sounds: S1 appreciated, S2 appreciated Course - Vital Signs Vital signs: Temp Pulse Resp BP Pulse Ox 98.2 F 104 H 15 183/74 H 100 01/20/19 09:15 01/20/19 09:15 01/20/19 09:15 01/20/19 09:15 01/20/19 09:16 - Laboratory Result Diagrams: 01/20/19 09:10 01/20/19 09:10 Doctor's Discharge - Discharge Referrals: LAINEY CARROLL DO [Primary Care Provider] - Follow up as needed
[2019-01-20 09:37] LABS: HEMATOCRIT 27.9 % (37.9-51.0); HEMOGLOBIN 8.4 g/dL (13.5-17.0); MEAN CORPUSCULAR HEMOGLOBIN 19.9 pg (27.0-33.4); MEAN CORPUSCULAR HGB CONC 29.9 g/dL (32.0-36.0); MEAN CORPUSCULAR VOLUME 67 fl (80-97); PLATELET COUNT 150 10^3/uL (150-450); RED BLOOD COUNT 4.19 10^6/uL (4.35-5.55); RED CELL DISTRIBUTION WIDTH 22.5 % (11.5-14.0); WHITE BLOOD COUNT 3.9 10^3/uL (4.0-10.5)
[2019-01-20 09:49] LABS: ALBUMIN 3.1 g/dL (3.5-5.0); ALKALINE PHOSPHATASE 162 U/L (38-126); ANION GAP 8 (5-19); ASPARTATE AMINO TRANSFERASE 90 U/L (17-59); BILIRUBIN,DIRECT 0.8 mg/dL (0.0-0.4); BILIRUBIN,TOTAL 1.5 mg/dL (0.2-1.3); BLOOD UREA NITROGEN 10 mg/dL (7-20); CALCIUM 8.2 mg/dL (8.4-10.2); CARBON DIOXIDE 27 mmol/L (22-30); CHLORIDE 110 mmol/L (98-107); CREATINE KINASE 150 U/L (55-170); GLUCOSE 110 mg/dL (75-110); INTERNATIONAL RATION (INR) 1.56; POTASSIUM 3.6 mmol/L (3.6-5.0); PROTHROMBIN TIME 18.9 SEC (11.4-15.4); TOTAL PROTEIN 7.7 g/dL (6.3-8.2)
[2019-01-20 09:50] LABS: PARTIAL THROMBOPLASTIN TIME 35.6 SEC (23.5-35.8)
[2019-01-20 10:02] LABS: CREATINE KINASE MB 0.59 ng/mL (<4.55)
[2019-01-20 10:06] LABS: TROPONIN I < 0.012 ng/mL
[2019-01-20 10:24] LABS: ABSOLUTE LYMPHOCYTES# (MANUAL) 0.9 10^3/uL (0.5-4.7); ABSOLUTE MONOCYTES # (MANUAL) 0.3 10^3/uL (0.1-1.4); BAND NEUTROPHILS % (MANUAL) 2 % (3-5); BASOPHILS % (MANUAL) 1 % (0-2); EOSINOPHILS % (MANUAL) 0 % (0-6); LYMPHOCYTES % (MANUAL) 23 % (13-45); MONOCYTES % (MANUAL) 7 % (3-13); SEGMENTED NEUTROPHILS % (MAN) 67 % (42-78); TOTAL CELLS COUNTED 100
[2019-01-20 10:27] LABS: ANISOCYTOSIS 3+; HYPOCHROMASIA SLIGHT; OVALOCYTES SLIGHT; PLATELET COMMENT ADEQUATE; PLATELET LARGE PRESENT; POIKILOCYTOSIS SLIGHT; POLYCHROMASIA SLIGHT; SCHISTOCYTES SLIGHT; TARGET CELLS 1+
--- NOTE | 2019-01-20 11:01 | RADIOLOGY REPORT (SQ) ---
EXAM DESCRIPTION: CHEST 2 VIEWS COMPLETED DATE/TIME: 01/20/2019 10:52 am REASON FOR STUDY: cp COMPARISON: 11/05/2018 EXAM PARAMETERS: NUMBER OF VIEWS: two views TECHNIQUE: Digital Frontal and Lateral radiographic views of the chest acquired. RADIATION DOSE: NA LIMITATIONS: none FINDINGS: LUNGS AND PLEURA: Mild prominence of the interstitial markings. No opacities, masses or pneumothorax. No pleural effusion. MEDIASTINUM AND HILAR STRUCTURES: No masses or contour abnormalities. HEART AND VASCULAR STRUCTURES: Heart normal size. No evidence for failure. BONES: No acute findings. HARDWARE: None in the chest. OTHER: No other significant finding. IMPRESSION: 1. Significant interval changes since the prior study dated 11/05/2018. No acute findin gs. TECHNICAL DOCUMENTATION: JOB ID: [id number] [employer]- All Rights Reserved Reading location - IP/workstation name: [email or web address]
[2019-01-20] MEDS ORDERED: PANTOPRAZOLE SODIUM 40 MG VIAL IV ONE (11:15)
[2019-01-20] MEDS: PANTOPRAZOLE SODIUM 40 MG VIAL IV PRN ×2 (12:00→20:10)
--- NOTE | 2019-01-20 13:19 | EKG REPORT ---
SEVERITY:- BORDERLINE ECG - SINUS RHYTHM BORDERLINE PROLONGED QT INTERVAL : Confirmed by: Juliano Brooks MD 20-Jan-2019 13:19:05
[2019-01-20 13:32] LABS: APPEARANCE,URINE CLEAR; BILIRUBIN,URINE NEGATIVE (NEGATIVE); COLOR,URINE YELLOW; GLUCOSE, URINE NEGATIVE (NEGATIVE); KETONES,URINE TRACE mg/dL (NEGATIVE); LEUKOCYTE ESTERASE,URINE NEGATIVE (NEGATIVE); NITRITE,URINE NEGATIVE (NEGATIVE); PROTEIN,URINE NEGATIVE (NEGATIVE)
[2019-01-20 15:12] LABS: HEMATOCRIT 24.1 % (37.9-51.0); MEAN CORPUSCULAR HEMOGLOBIN 19.8 pg (27.0-33.4); MEAN CORPUSCULAR HGB CONC 30.2 g/dL (32.0-36.0); MEAN CORPUSCULAR VOLUME 66 fl (80-97); PLATELET COUNT 141 10^3/uL (150-450); RED BLOOD COUNT 3.67 10^6/uL (4.35-5.55); WHITE BLOOD COUNT 3.6 10^3/uL (4.0-10.5)
[2019-01-20 15:40] LABS: ABSOLUTE LYMPHOCYTES# (MANUAL) 0.7 10^3/uL (0.5-4.7); ABSOLUTE MONOCYTES # (MANUAL) 0.1 10^3/uL (0.1-1.4); BAND NEUTROPHILS % (MANUAL) 1 % (3-5); BASOPHILS % (MANUAL) 0 % (0-2); EOSINOPHILS % (MANUAL) 0 % (0-6); LYMPHOCYTES % (MANUAL) 19 % (13-45); MONOCYTES % (MANUAL) 4 % (3-13); SEGMENTED NEUTROPHILS % (MAN) 76 % (42-78); TOTAL CELLS COUNTED 100
[2019-01-20 15:41] LABS: ANISOCYTOSIS 3+
[2019-01-20 15:42] LABS: OVALOCYTES SLIGHT; PLATELET COMMENT ADEQUATE; POIKILOCYTOSIS SLIGHT; TARGET CELLS 1+
[2019-01-20 15:43] LABS: HYPOCHROMASIA SLIGHT; POLYCHROMASIA SLIGHT
[2019-01-20 15:47] LABS: HEMOGLOBIN 7.3 g/dL (13.5-17.0)
--- NOTE | 2019-01-20 15:56 | ER Document Report ---
ED General - General TRAVEL OUTSIDE OF THE [place] IN LAST 30 DAYS: No - HPI Patient complains to provider of: dark stool Onset: This morning Onset/Duration: Sudden Quality of pain: Achy Severity: Moderate Pain Level: 2 <RAHEEM KAUR - Last Filed: 01/20/19 16:47> <GISSELL DEL REAL - Last Filed: 01/20/19 20:54> - General Chief Complaint: Chest Pain Stated Complaint: CHEST PAIN Time Seen by Provider: 01/20/19 09:23 Primary Care Provider: LAINEY CARROLL DO [NO LOCAL MD] - Follow up as needed - HPI Context: 64 year male presents with dark stool at about 430 am this morning. After waking today had coffee ground emesis once. He tells me he is an alcoholic and has a h/o anemia, hematuria and coagulopathy. Some vague chest pain earlier today too. No chest pain when I see him. No fever or chills and no sob. (RAHEEM KAUR) - Related Data Allergies/Adverse Reactions: No Known Allergies Allergy (Verified 01/20/19 09:07) Past Medical History - General Information source: Patient - Social History Smoking Status: Current Every Day Smoker Frequency of alcohol use: every day Family History: Reviewed & Not Pertinent Patient has suicidal ideation: No Patient has homicidal ideation: No - Past Medical History Cardiac Medical History: Reports: Hx Hypertension Renal/ Medical History: Denies: Hx Peritoneal Dialysis GI Medical History: Reports: Hx Gastroesophageal Reflux Disease, Hx Hepatitis Musculoskeletal Medical History: Reports Hx Arthritis, Reports Hx Gout - QUES TIONABLE Infectious Medical History: Reports: Hx Hepatitis - Immunizations Immunizations up to date: Yes Hx Diphtheria, Pertussis, Tetanus Vaccination: No <RAHEEM KAUR - Last Filed: 01/20/19 16:47> Physical Exam - Vital signs Interpretation: Normal - General General appearance: Appears well, Alert - HEENT Head: Normocephalic, Atraumatic Eyes: Normal Pupils: PERRL - Respiratory Respiratory status: No respiratory distress Chest status: Nontender Breath sounds: Normal Chest palpation: Normal - Cardiovascular Rhythm: Regular Heart sounds: Normal auscultation Murmur: No - Abdominal Inspection: Normal Distension: No distension Bowel sounds: Normal Tenderness: Nontender Organomegaly: No organomegaly - Rectal Tenderness: No Stool: Heme positive, Other - brown stool Hemorrhoids: None - Back Back: Normal, Nontender - Extremities General upper extremity: Normal inspection, Nontender, Normal color, Normal ROM, Normal temperature General lower extremity: Normal inspection, Nontender, Normal color, Normal ROM, Normal temperature, Normal weight bearing. No: Pavithra's sign - Neurological Neuro grossly intact: Yes Cognition: Normal Orientation: AAOx4 [place] Coma Scale Eye Opening: Spontaneous Ye Coma Scale Verbal: Oriented Ye Coma Scale Motor: Obeys Commands [place] Coma Scale Total: 15 Speech: Normal Motor strength normal: LUE, RUE, LLE, RLE Sensory: Normal - Psychological Associated symptoms: Normal affect, Normal mood - Skin Skin Temperature: Warm Skin Moisture: Dry Skin Color: Normal <RAHEEM KAUR - Last Filed: 01/20/19 16:47> - Vital signs Vitals: Temp Pulse Resp BP Pulse Ox 98.2 F 104 H 15 183/74 H 100 01/20/19 09:15 01/20/19 09:15 01/20/19 09:15 01/20/19 09:15 01/20/19 09:15 Course - Laboratory Result Diagrams: 01/20/19 14:46 01/20/19 09:10 <RAHEEM KAUR - Last Filed: 01/20/19 16:47> - Laboratory Result Diagrams: 01/20/19 14:46 01/20/19 09:10 <GISSELL DEL REAL - Last Filed: 01/20/19 20:54> - Re-evaluation Re-evalutation: 01/20/19 16:10 MDM 64 year old male who by lab evaluation looks likely to have etohic liver disease is here with blood per BM this am. Also coffee ground emesis this am at home. Hgb 8.4 here initially. I spoke with our hospitalist and would admit if reperat within a gram. Unfortunately recheck 7.3. I have discussed this gentleman with the hospitalist team at [facility] and they have graciously accepted the pt to [facility]. We are awaiting a bed. 01/20/19 16:29 Accepted by Bertrand Michel to the medicine service. 01/20/19 16:48 Received Call from [facility]. Pt accepted [facility] ICU bed #2. Working on logistics (RAHEEM KAUR) 01/20/19 20:54 Patient with GI bleed deceived in signout from Dr. Kaur, transport team is now here, still receiving PRBCs and Protonix, second unit of PRBCs as started. No further vomiting or diarrhea since sign out. Not hypotensive. Stable for transport. (GISSELL DEL REAL) - Vital Signs Vital signs: Temp Pulse Resp BP Pulse Ox 99.1 F 103 H 19 170/78 H 100 01/20/19 20:40 01/20/19 20:40 01/20/19 20:40 01/20/19 20:40 01/20/19 20:40 - Laboratory Laboratory results interpreted by me: 01/20/19 01/20/19 01/20/19 09:10 09:10 09:10 WBC 3.9 L RBC 4.19 L Hgb 8.4 L Hct 27.9 L MCV 67 L MCH 19.9 L MCHC 29.9 L RDW 22.5 H Plt Count Band Neutrophils % 2 L PT Sodium 145.1 H Chloride 110 H Calcium 8.2 L Total Bilirubin 1.5 H Direct Bilirubin 0.8 H AST 90 H Alkaline Phosphatase 162 H Ammonia Albumin 3.1 L Lipase 497.0 H Urine Ketones Urine Urobilinogen Crossmatch 01/20/19 01/20/19 01/20/19 09:10 13:10 14:46 WBC 3.6 L RBC 3.67 L Hgb 7.3 L Hct 24.1 L MCV 66 L MCH 19.8 L MCHC 30.2 L RDW 22.0 H Plt Count 141 L Band Neutrophils % 1 L PT 18.9 H Sodium Chloride Calcium Total Bilirubin Direct Bilirubin AST Alkaline Phosphatase Ammonia Albumin Lipase Urine Ketones TRACE H Urine Urobilinogen 4.0 H Crossmatch 01/20/19 01/20/19 14:46 14:46 WBC RBC Hgb Hct MCV MCH MCHC RDW Plt Count Band Neutrophils % PT Sodium Chloride Calcium Total Bilirubin Direct Bilirubin AST Alkaline Phosphatase Ammonia 42.1 H Albumin Lipase Urine Ketones Urine Urobilinogen Crossmatch See Detail Critical Care Note - Critical Care Note Total time excluding time spent on procedures (mins): 30 - Discussed with pt and reviewed records and spoke more than once with Ledy and then our hospitalist team here. <RAHEEM KAUR - Last Filed: 01/20/19 16:47> Discharge - Discharge Unit Admitted: Telemetry <RAHEEM KAUR - Last Filed: 01/20/19 16:47> <GISSELL DEL REAL - Last Filed: 01/20/19 20:54> - Discharge Clinical Impression: GI bleeding Qualifiers: GI bleed type/associated pathology: unspecified gastrointestinal hemorrhage type Qualified Code(s): K92.2 - Gastrointestinal hemorrhage, unspecified Anemia Qualifiers: Anemia type: unspecified type Qualified Code(s): D64.9 - Anemia, unspecified Disposition: [facility] Referrals: LAINEY CARROLL DO [NO LOCAL MD] - Follow up as needed
[2019-01-20] MEDS ORDERED: NORMAL SALINE 250 ML IV PRN (16:08)
[2019-01-20] MEDS ORDERED: ONDANSETRON HCL INJ/PF 4 MG/2 ML SDV IV ONE (16:57)
[2019-01-20 21:04] VITALS: BP 164/71
== END 2019-01-20 21:15 | disposition short-term general hospital (02) ==
LOC: ER 08:51
DX: K92.2 Gastrointestinal hemorrhage, unspecified (principal); D64.9 Anemia, unspecified; R19.5 Other fecal abnormalities; R07.9 Chest pain, unspecified; R11.10 Vomiting, unspecified; F10.20 Alcohol dependence, uncomplicated; F17.200 Nicotine dependence, unspecified, uncomplicated; I10 Essential (primary) hypertension
CPT/HCPCS: 93005; 96376; 99291; 96375; 96365; 86900; 86901; 36415; 82553; 36430; 86850; 82140; 82550; 83690; 85025; 85610; 85730; 80053; 81001; 84484; 86920; 71046; 93010; P9016; S0164; J2405

== ENCOUNTER 2019-04-29 18:14 | Inpatient (IN) | payer MEDICARE ==
[2019-04-29] MEDS ORDERED: NORMAL SALINE 1000 ML 1,000 ML IV ONE (19:10)
[2019-04-29] MEDS ORDERED: ONDANSETRON HCL INJ/PF 4 MG/2 ML SDV IV ONE (19:10)
--- NOTE | 2019-04-29 19:12 | ER Document Report ---
ED Medical Screen (RME) - General Chief Complaint: Vomiting Stated Complaint: VOMITING Time Seen by Provider: 04/29/19 19:01 Mode of Arrival: Wheelchair Information source: Patient Notes: 64-year-old male patient presenting to the emergency department with complaints of abdominal pain and vomiting blood. Patient also reports passage of very dark stools. His is at the bedside, states that he is a heavy alcoholic. Patient reports he had some alcohol to drink earlier today, he is going in and out of consciousness in triage. He is arousable with sternal rubs. Patient was taken straight to a room, charge nurse made aware. Orders placed. I have greeted and performed a rapid initial assessment of this patient. A comprehensive ED assessment and evaluation of the patient, analysis of test results and completion of the medical decision making process will be conducted by additional ED providers. I have specifically instructed the patient or family members with the patient to immediately return to any nursing staff should anything change in the patient's condition or with their chief complaint. TRAVEL OUTSIDE OF THE [place] IN LAST 30 DAYS: No - Related Data Allergies/Adverse Reactions: No Known Allergies Allergy (Verified 04/29/19 18:59) Past Medical History - Past Medical History Cardiac Medical History: Reports: Hx Hypertension Renal/ Medical History: Denies: Hx Peritoneal Dialysis GI Medical History: Reports: Hx Gastroesophageal Reflux Disease, Hx Hepatitis Musculoskeltal Medical History: Reports Hx Arthritis, Reports Hx Gout - QUESTIONABLE Infectious Medical History: Reports: Hx Hepatitis - Immunizations Immunizations up to date: Yes Hx Diphtheria, Pertussis, Tetanus Vaccination: No Physical Exam - Vital signs Vitals: Temp Pulse Resp BP Pulse Ox 98.4 F 112 H 20 180/74 H 100 04/29/19 18:36 04/29/19 18:36 04/29/19 18:36 04/29/19 18:36 04/29/19 18:36 Course - Vital Signs Vital signs: Temp Pulse Resp BP Pulse Ox 98.4 F 112 H 20 180/74 H 100 04/29/19 18:36 04/29/19 18:36 04/29/19 18:36 04/29/19 18:36 04/29/19 18:36
--- NOTE | 2019-04-29 19:32 | ER Document Report ---
ED General - General Chief Complaint: Vomiting Stated Complaint: VOMITING Time Seen by Provider: 04/29/19 19:01 Mode of Arrival: Wheelchair Information source: Patient TRAVEL OUTSIDE OF THE [place] IN LAST 30 DAYS: No - HPI Onset: This morning Onset/Duration: Gradual Quality of pain: Achy, Burning, Other - in stomach Severity: Moderate Pain Level: 1 Associated symptoms: Vomiting - dark colored emesis, passing dark stools Exacerbated by: Denies Relieved by: Denies Similar symptoms previously: Yes - patient has has several GI Bleeds in the past Notes: 64 year old male with a history of Daily Alcohol Use/Abuse, Hepatitis, GERD, Prior GI Bleeding here for nausea, vomiting, black colored stools, and coffee ground emesis which started today. The patient continues to smoke an drink daily. The patient was seen in this ER in January and transferred to [facility] in January for a GI bleed then. The patient says he had an upper and lower endoscopy at that time but he is not sure what was found or what was done. The patient's tells me the patient has been somewhat confused and altered today as well. The patient says he has felt dizzy and light headed today as well. - Related Data Allergies/Adverse Reactions: No Known Allergies Allergy (Verified 04/29/19 18:59) Past Medical History - General Information source: Patient - Social History Smoking Status: Current Every Day Smoker Frequency of alcohol use: Heavy Drug Abuse: None Family History: Reviewed & Not Pertinent Patient has suicidal ideation: No Patient has homicidal ideation: No - Past Medical History Cardiac Medical History: Reports: Hx Hypertension Renal/ Medical History: Denies: Hx Peritoneal Dialysis GI Medical History: Reports: Hx Gastroesophageal Reflux Disease, Hx Hepatitis Musculoskeletal Medical History: Reports Hx Arthritis, Reports Hx Gout - QUESTIONABLE Infectious Medical History: Reports: Hx Hepatitis - Immunizations Immunizations up to date: Yes Hx Diphtheria, Pertussis, Tetanus Vaccination: No Review of Systems - Review of Systems Constitutional: Weakness EENT: No symptoms reported Cardiovascular: Heart racing Respiratory: No symptoms reported Gastrointestinal: Nausea, Vomiting - coffee ground emesis, Black stools Genitourinary: No symptoms reported Male Genitourinary: No symptoms reported Musculoskeletal: No symptoms reported Skin: No symptoms reported Hematologic/Lymphatic: No symptoms reported Neurological/Psychological: Other - altered mental status Physical Exam - Vital signs Vitals: Temp Pulse Resp BP Pulse Ox 98.4 F 112 H 20 180/74 H 100 04/29/19 18:36 04/29/19 18:36 04/29/19 18:36 04/29/19 18:36 04/29/19 18:36 - Notes Notes: GENERAL: Well-appearing, well-nourished and in no acute distress. Poor hygiene. HEAD: Atraumatic, normocephalic. EYES: Pupils equal round and reactive to light, extraocular movements intact, sclera anicteric, conjunctiva are normal. ENT: TMs normal, nares patent, oropharynx clear without exudates. Moist mucous membranes. NECK: Normal range of motion, supple without lymphadenopathy or JVD. LUNGS: Breath sounds clear to auscultation bilaterally and equal. No wheezes rales or rhonchi. HEART: Tachycardic, normal rhythm without murmurs, rubs or gallops. ABDOMEN: Soft, nontender, normoactive bowel sounds. No guarding, no rebound. No masses appreciated. Mild abdominal distension which patient says is baseline for him. EXTREMITIES: Normal range of motion, no pitting or edema. No clubbing or cyanosis. NEUROLOGICAL: Cranial nerves II through XII grossly intact. Normal speech, normal gait. PSYCH: Normal mood, normal affect. SKIN: Warm, Dry, normal turgor, no rashes or lesions noted. Course - Re-evaluation Re-evalutation: 04/29/19 20:56 The patient seems to be having a GI bleed. It is not clear to me how acute his anemia is or isnt given his hemoglobin was about the same the last time he was in this ER and transferred to [facility] for GI care. I spoke with Dr. Nagel of GI here at [facility] and he is happy to see the patient in consult if the hospitalist will admit the patient. The patient was treated in the ER with fluids, zofran, and IV Protonix. Patient does not know if he has varicies so will hold off on Octreotide for now. 04/29/19 21:01 The patient was accepted by the Hospitalist to a Tele Bed. - Vital Signs Vital signs: Temp Pulse Resp BP Pulse Ox 97.8 F 112 H 18 172/83 H 100 04/29/19 19:12 04/29/19 18:36 04/29/19 19:13 04/29/19 19:13 04/29/19 19:13 - Laboratory Result Diagrams: 04/29/19 19:25 04/29/19 19:25 Laboratory results interpreted by me: 04/29/19 04/29/19 04/29/19 19:25 19:25 19:25 RBC 4.09 L Hgb 8.7 L Hct 28.0 L MCV 68 L MCH 21.3 L MCHC 31.2 L RDW 19.9 H Band Neutrophils % 1 L PT 16.8 H Sodium 145.7 H Potassium 3.3 L Total Bilirubin 1.6 H Direct Bilirubin 1.2 H AST 100 H Alkaline Phosphatase 203 H Ammonia Albumin 3.3 L Urine Ketones Urine Urobilinogen 04/29/19 04/29/19 19:25 21:45 RBC Hgb Hct MCV MCH MCHC RDW Band Neutrophils % PT Sodium Potassium Total Bilirubin Direct Bilirubin AST Alkaline Phosphatase Ammonia 47.0 H Albumin Urine Ketones TRACE H Urine Urobilinogen 4.0 H Discharge - Discharge Clinical Impression: Alcohol abuse GI bleed Qualifiers: GI bleed type/associated pathology: unspecified gastrointestinal hemorrhage type Qualified Code(s): K92.2 - Gastrointestinal hemorrhage, unspecified Condition: Stable Disposition: ADMITTED INPATIENT Admitting Provider: Fan (Hospitalist) Unit Admitted: Telemetry
[2019-04-29] MEDS ORDERED: PANTOPRAZOLE SODIUM 40 MG VIAL IV ONE (19:34)
[2019-04-29] MEDS ORDERED: PANTOPRAZOLE SODIUM 40 MG VIAL IV PRN (19:34)
[2019-04-29 19:52] LABS: HEMOGLOBIN 8.7 g/dL (13.5-17.0); MEAN CORPUSCULAR HEMOGLOBIN 21.3 pg (27.0-33.4); MEAN CORPUSCULAR HGB CONC 31.2 g/dL (32.0-36.0); MEAN CORPUSCULAR VOLUME 68 fl (80-97); PLATELET COUNT 167 10^3/uL (150-450); RED BLOOD COUNT 4.09 10^6/uL (4.35-5.55); RED CELL DISTRIBUTION WIDTH 19.9 % (11.5-14.0); WHITE BLOOD COUNT 4.4 10^3/uL (4.0-10.5)
[2019-04-29 19:55] LABS: INTERNATIONAL RATION (INR) 1.35; PROTHROMBIN TIME 16.8 SEC (11.4-15.4)
[2019-04-29 19:56] LABS: PARTIAL THROMBOPLASTIN TIME 33.7 SEC (23.5-35.8)
[2019-04-29 20:05] LABS: ALBUMIN 3.3 g/dL (3.5-5.0); ALCOHOL 116 mg/dL (NONE DETECTED); ALKALINE PHOSPHATASE 203 U/L (38-126); ANION GAP 11 (5-19); ASPARTATE AMINO TRANSFERASE 100 U/L (17-59); BILIRUBIN,DIRECT 1.2 mg/dL (0.0-0.4); BILIRUBIN,TOTAL 1.6 mg/dL (0.2-1.3); BLOOD UREA NITROGEN 11 mg/dL (7-20); CALCIUM 8.6 mg/dL (8.4-10.2); CARBON DIOXIDE 29 mmol/L (22-30); CHLORIDE 106 mmol/L (98-107); GLUCOSE 107 mg/dL (75-110); POTASSIUM 3.3 mmol/L (3.6-5.0); TOTAL PROTEIN 7.8 g/dL (6.3-8.2)
[2019-04-29 20:15] LABS: ABSOLUTE MONOCYTES # (MANUAL) 0.3 10^3/uL (0.1-1.4); ANISOCYTOSIS 2+; BAND NEUTROPHILS % (MANUAL) 1 % (3-5); BASOPHILS % (MANUAL) 0 % (0-2); EOSINOPHILS % (MANUAL) 2 % (0-6); HYPOCHROMASIA 2+; LYMPHOCYTES % (MANUAL) 23 % (13-45); MONOCYTES % (MANUAL) 7 % (3-13); PLATELET COMMENT ADEQUATE; SEGMENTED NEUTROPHILS % (MAN) 67 % (42-78); TARGET CELLS 3+; TOTAL CELLS COUNTED 100
--- NOTE | 2019-04-29 21:59 | RADIOLOGY REPORT (SQ) ---
EXAM DESCRIPTION: CLINICAL HISTORY: 64 years Male, eval for free air after vomiting blood COMPARISON: 01/20/2019. FINDINGS: Borderline heart size. No suspicious mediastinal widening. Overpenetrated film. No suspicious lung or pleural abnormalities. No evidence for free air. Possible gastritis.
[2019-04-29 22:13] LABS: APPEARANCE,URINE CLEAR; BILIRUBIN,URINE NEGATIVE (NEGATIVE); COLOR,URINE YELLOW; GLUCOSE, URINE NEGATIVE (NEGATIVE); KETONES,URINE TRACE mg/dL (NEGATIVE); LEUKOCYTE ESTERASE,URINE NEGATIVE (NEGATIVE); NITRITE,URINE NEGATIVE (NEGATIVE); PROTEIN,URINE NEGATIVE (NEGATIVE); URINE SPECIFIC GRAVITY 1.013
[2019-04-29 22:35] LABS: URINE AMPHETAMINES SCREEN NEGATIVE; URINE BARBITURATES SCREEN NEGATIVE; URINE BENZODIAZEPINES SCREEN NEGATIVE; URINE COCAINE SCREEN NEGATIVE; URINE MARIJUANA (THC) SCREEN NEGATIVE; URINE METHADONE SCREEN NEGATIVE; URINE PHENCYCLIDINE SCREEN NEGATIVE
[2019-04-29] MEDS ORDERED: PHYTONADIONE INJ 10 MG/1 ML AMPULE SUBCUT ONE ×2 (23:12→23:30)
[2019-04-29] MEDS ORDERED: ONDANSETRON HCL INJ/PF 4 MG/2 ML SDV IV PRN (23:14)
[2019-04-29] MEDS ORDERED: DEXTROSE 50%-WATER 25 GM/50 ML DISP.SYRIN IV PRN ×2 (23:14)
[2019-04-29] MEDS ORDERED: DEXTROSE 40% GEL 15 GM TUBE PO PRN ×2 (23:14)
[2019-04-29] MEDS ORDERED: GLUCAGON,HUMAN RECOMB 1 MG INJ SUBCUT PRN (23:14)
[2019-04-29] MEDS ORDERED: ACETAMINOPHEN 650 MG SUPP.RECT PR PRN (23:14)
[2019-04-29] MEDS ORDERED: DIAZEPAM 5 MG TABLET PO SCH (23:15)
[2019-04-29] MEDS ORDERED: NORMAL SALINE 1000 ML 1,000 ML IV SCH (23:15)
[2019-04-29] MEDS ORDERED: THIAMINE HCL 100 MG, FOLIC ACID 1 MG in NORMAL SALINE 250 ML IV SCH (23:30)
[2019-04-30] MEDS ORDERED: THIAMINE HCL INJ 200 MG/2 ML VIAL ONE (00:17)
[2019-04-30] MEDS ORDERED: FOLIC ACID INJ 5 MG/1 ML 10 ML VIAL ONE (00:17)
[2019-04-30] MEDS ORDERED: NORMAL SALINE 250 ML IV PRN ×2 (01:50)
[2019-04-30] MEDS ORDERED: NORMAL SALINE 1000 ML 1,000 ML IV PRN (01:53)
[2019-04-30] MEDS ORDERED: DIAZEPAM INJ 10 MG/2 ML DISP.SYRIN IV ONE (02:10)
[2019-04-30] MEDS ORDERED: INFLUENZA QUAD (6MOS+) 2019-20 VAC 0.5 ML SYR IM ONE (02:11)
--- NOTE | 2019-04-30 02:21 | PDOC H&P ---
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 Patient is intoxicated and a poor historian accompanied by his who were both unclear as to the presence of varices. Patient was admitted to [facility] with alcoholic gastritis approximately 1 year ago. He presents after 4 episodes of coffee-ground vomiting and epigastric discomfort. He denies chest pain, shortness of breath, palpitations. In the emergency department he is found to have hemoglobin of 8.7 which appears to be greater than his baseline going back to October 2018. He started on a bolus of IV Protonix and without further incidence of emesis he is referred to the hospitalist for admission. He is unclear of his medication regiment he admits to ongoing heavy drinking but is unable or unwilling to quantify. 3 hours following admission patient's floor nurse has contacted me for vomiting of bright red blood and tachycardia. He denies chest pain or shortness of breath, he is ordered 2 units of FFP, packed red blood cells. Surgicallist and mechanical maintenance are consulted and consequently he is transferred to the intensive care unit. Past Medical History Cardiac Medical History: Reports: Hypertension GI Medical History: Reports: Gastroesophageal Reflux Disease, Hepatitis, Other - Alcoholic gastritis, upper GI bleed Musculoskeltal Medical History: Reports: Arthritis, Gout - QUESTIONABLE Psychiatric Medical History: Reports: Alcohol Dependency Denies: Depression Hematology: Reports: Anemia Social History Information Source: Patient Smoking Status: Current Some Day Smoker Cigarettes Packs Per Day: 0.5 Electronic Cigarette use?: No Number of Years Smokin Last Time Smoked: 04/29/19 Frequency of Alcohol Use: Heavy Hx Recreational Drug Use: No Drugs: None Hx Prescription Drug Abuse: No - Advance Directive Resuscitation Status: Full Code Family History Family History: COPD, Hypertension Parental Family History Reviewed: Yes Children Family History Reviewed: Yes Sibling(s) Family History Reviewed.: Yes Medication/Allergy Home Medications: Furosemide [Lasix] 40 mg PO DAILY 04/30/19 Omeprazole 20 mg PO DAILY 04/30/19 Spironolactone [Aldactone 100 mg Tablet] 1 tab PO DAILY 04/30/19 Allergies/Adverse Reactions: No Known Allergies Allergy (Verified 04/29/19 18:59) Review of Systems ROS unobtainable: Due to mental status Physical Exam Vital Signs: Temp Pulse Resp BP Pulse Ox 98.5 F 105 H 18 151/85 H 100 04/30/19 01:01 04/30/19 01:01 04/30/19 01:01 04/30/19 01:01 04/30/19 01:01 Intake & Output 04/28/19 04/29/19 04/30/19 11:59 11:59 11:59 Intake Total 1000 Balance 1000 Weight 67.8 kg General appearance: PRESENT: no acute distress, cooperative, disheveled, well- developed, well-nourished Head exam: PRESENT: atraumatic, normocephalic Eye exam: PRESENT: conjunctiva pink, EOMI, PERRLA. ABSENT: scleral icterus Ear exam: PRESENT: normal external ear exam Mouth exam: PRESENT: moist, tongue midline Neck exam: ABSENT: carotid bruit, JVD, lymphadenopathy, thyromegaly Respiratory exam: PRESENT: clear to auscultation julia. ABSENT: rales, rhonchi, wheezes Cardiovascular exam: PRESENT: RRR. ABSENT: diastolic murmur, rubs, systolic murmur Pulses: PRESENT: normal dorsalis pedis pul GI/Abdominal exam: PRESENT: diminished bowel sounds, normal bowel sounds, soft, tenderness - Epigastric. ABSENT: distended, guarding, mass, organolmegaly, rebound Rectal exam: PRESENT: deferred Extremities exam: PRESENT: full ROM. ABSENT: calf tenderness, clubbing, pedal edema Neurological exam: PRESENT: alert, awake, oriented to person, oriented to place, oriented to time, oriented to situation, CN II-XII grossly intact. ABSENT: motor sensory deficit Psychiatric exam: PRESENT: unusual affect Skin exam: PRESENT: dry, intact, warm. ABSENT: cyanosis, rash Results Laboratory Results: 04/29/19 19:25 04/29/19 19:25 04/29/19 04/29/19 04/29/19 19:25 19:25 19:25 WBC 4.4 RBC 4.09 L Hgb 8.7 L Hct 28.0 L MCV 68 L MCH 21.3 L MCHC 31.2 L RDW 19.9 H Plt Count 167 Seg Neutrophils % Not Reportable Sodium 145.7 H Potassium 3.3 L Chloride 106 Carbon Dioxide 29 Anion Gap 11 BUN 11 Creatinine 1.01 Est GFR ( Amer) > 60 Glucose 107 Calcium 8.6 Total Bilirubin 1.6 H AST 100 H Alkaline Phosphatase 203 H Ammonia Total Protein 7.8 Albumin 3.3 L Lipase Urine Color Urine Appearance Urine pH Ur Specific [place] Urine Protein Urine Glucose (UA) Urine Ketones Urine Blood Urine Nitrite Ur Leukocyte Esterase Urine WBC (Auto) Urine RBC (Auto) Blood Type B POSITIVE Antibody Screen NEGATIVE 04/29/19 04/29/19 04/29/19 19:25 19:25 21:45 WBC RBC Hgb Hct MCV MCH MCHC RDW Plt Count Seg Neutrophils % Sodium Potassium Chloride Carbon Dioxide Anion Gap BUN Creatinine Est GFR ( Amer) Glucose Calcium Total Bilirubin AST Alkaline Phosphatase Ammonia 47.0 H Total Protein Albumin Lipase 641.8 H Urine Color YELLOW Urine Appearance CLEAR Urine pH 7.0 Ur Specific [place] 1.013 Urine Protein NEGATIVE Urine Glucose (UA) NEGATIVE Urine Ketones TRACE H Urine Blood NEGATIVE Urine Nitrite NEGATIVE Ur Leukocyte Esterase NEGATIVE Urine WBC (Auto) 1 Urine RBC (Auto) 0 Blood Type Antibody Screen Assessment and Plan - Diagnosis (1) Alcoholic gastritis Is this a current diagnosis for this admission?: Yes Plan: Trial IMCU unsuccessful given recurrence of emesis of bright red blood. Transfer to ICU, surgical hist consult, continue IV Protonix, 2 units of FFP and packed red blood cells ordered. (2) Anemia Is this a current diagnosis for this admission?: Yes Plan: Follow-up serial CBC, transfuse hemoglobin less than 8 or active bleed (3) Alcohol abuse Is this a current diagnosis for this admission?: Yes Plan: Anticipate withdrawal, thiamine, folate, Valium and Ativan PRN ordered. Discharge planning consulted for patient's request of rehab (4) GI bleed Qualifiers: GI bleed type/associated pathology: unspecified gastrointestinal hemorrhage type Qualified Code(s): K92.2 - Gastrointestinal hemorrhage, unspecified Is this a current diagnosis for this admission?: Yes Plan: Please see #1 - Time Time Spent with patient: 35 or more minutes - Inpatient Certification Medical Necessity: Need Close Monitoring Due to Risk of Patient Decompensation
[2019-04-30 02:38] LABS: ALBUMIN 2.8 g/dL (3.5-5.0); ALKALINE PHOSPHATASE 151 U/L (38-126); ANION GAP 11 (5-19); ASPARTATE AMINO TRANSFERASE 80 U/L (17-59); BILIRUBIN,DIRECT 1.2 mg/dL (0.0-0.4); BILIRUBIN,TOTAL 1.9 mg/dL (0.2-1.3); BLOOD UREA NITROGEN 13 mg/dL (7-20); CALCIUM 7.8 mg/dL (8.4-10.2); CARBON DIOXIDE 23 mmol/L (22-30); CHLORIDE 112 mmol/L (98-107); GLUCOSE 85 mg/dL (75-110); IRON(TIBC) 68.5 ug/dL (49-181); POTASSIUM 3.9 mmol/L (3.6-5.0); TOTAL PROTEIN 6.8 g/dL (6.3-8.2)
[2019-04-30 02:42] LABS: ABSOLUTE RETICS # 0.061 10^6/uL (0.028-0.122); HEMATOCRIT 21.8 % (37.9-51.0); MEAN CORPUSCULAR HEMOGLOBIN 21.7 pg (27.0-33.4); MEAN CORPUSCULAR HGB CONC 31.6 g/dL (32.0-36.0); MEAN CORPUSCULAR VOLUME 69 fl (80-97); PLATELET COUNT 142 10^3/uL (150-450); RED BLOOD COUNT 3.19 10^6/uL (4.35-5.55); RED CELL DISTRIBUTION WIDTH 19.8 % (11.5-14.0); WHITE BLOOD COUNT 5.9 10^3/uL (4.0-10.5)
[2019-04-30 03:12] LABS: HEMOGLOBIN 6.9 g/dL (13.5-17.0)
[2019-04-30 03:15] LABS: FERRITIN 9.34 ng/mL (17.9-464.0)
[2019-04-30 03:20] LABS: ABSOLUTE LYMPHOCYTES# (MANUAL) 1.4 10^3/uL (0.5-4.7); ABSOLUTE MONOCYTES # (MANUAL) 0.2 10^3/uL (0.1-1.4); BASOPHILS % (MANUAL) 0 % (0-2); EOSINOPHILS % (MANUAL) 0 % (0-6); LYMPHOCYTES % (MANUAL) 23 % (13-45); MONOCYTES % (MANUAL) 4 % (3-13); SEGMENTED NEUTROPHILS % (MAN) 73 % (42-78); TOTAL CELLS COUNTED 100
[2019-04-30 03:21] LABS: ANISOCYTOSIS 2+; HYPOCHROMASIA 2+; OVALOCYTES SLIGHT; PLATELET COMMENT DECREASED; POIKILOCYTOSIS SLIGHT; POLYCHROMASIA SLIGHT; SCHISTOCYTES SLIGHT; TARGET CELLS SLIGHT; TEAR DROP CELLS SLIGHT; TOXIC GRANULATION SLIGHT
--- NOTE | 2019-04-30 03:29 | PDOC CONSULTATION ---
Consultation Consult Date: 04/30/19 Provider Consulted: SURGICAL SURGICALIST Consult reason:: hematemesis History of Present Illness Admission Date/PCP: 04/29/19 23:04 Patient complains of: hematemesis, alcohol abuse History of Present Illness: BEE MARK is a 64 year old male with a history of alcoholism. He had a recent scope done at [facility] for upper GI bleeding. I do not have the results of the endoscopy. The patient continues to drink heavily. The patient was admitted for anemia, abdominal pain, and failure to thrive. The patient was placed on the floor, and began having large-volume hematemesis. The nurses report a heart rate from 115-140. I was consulted to evaluate the patient for endoscopy. Upon my evaluation the patient reports fatigue, malaise, nausea, vomiting, and abdominal pain. He denies chest pain, shortness of br eath, headache. His pain is situated in the upper abdomen, is burning/gnawing, and is constant. The pain does not radiate. Nothing makes it better. Past Medical History Cardiac Medical History: Reports: Hypertension GI Medical History: Reports: Gastroesophageal Reflux Disease, Hepatitis, Other - Alcoholic gastritis, upper GI bleed Musculoskeltal Medical History: Reports: Arthritis, Gout - QUESTIONABLE Psychiatric Medical History: Reports: Alcohol Dependency Denies: Depression Hematology: Reports: Anemia Social History Smoking Status: Current Some Day Smoker Cigarettes Packs Per Day: 0.5 Electronic Cigarette use?: No Number of Years Smokin Last Time Smoked: 04/29/19 Frequency of Alcohol Use: Heavy Hx Recreational Drug Use: No Drugs: None Hx Prescription Drug Abuse: No - Advance Directive Resuscitation Status: Full Code Family History Family History: COPD, Hypertension Parental Family History Reviewed: Yes Children Family History Reviewed: Yes Sibling(s) Family History Reviewed.: Yes Medication/Allergy Home Medications: Furosemide [Lasix] 40 mg PO DAILY 04/30/19 Omeprazole 20 mg PO DAILY 04/30/19 Spironolactone [Aldactone 100 mg Tablet] 1 tab PO DAILY 04/30/19 Allergies/Adverse Reactions: No Known Allergies Allergy (Verified 04/29/19 18:59) Review of Systems Constitutional: PRESENT: fatigue. ABSENT: fever(s), headache(s) Eyes: ABSENT: visual disturbances Ears: ABSENT: hearing changes Nose, Mouth, and Throat: ABSENT: sore throat Cardiovascular: ABSENT: chest pain Respiratory: ABSENT: dyspnea Gastrointestinal: PRESENT: abdominal pain, hematemesis, nausea, vomiting Integumentary: ABSENT: pruritus, rash Neurological: PRESENT: confusion, convulsions, dizziness Psychiatric: ABSENT: anxiety, depression Endocrine: ABSENT: cold intolerance, heat intolerance Hematologic/Lymphatic: ABSENT: easy bleeding, easy bruising Physical Exam Vital Signs: Temp Pulse Resp BP Pulse Ox 98.2 F 111 H 20 154/69 H 100 04/30/19 02:18 04/30/19 02:18 04/30/19 02:18 04/30/19 02:18 04/30/19 02:18 Intake & Output 04/28/19 04/29/19 04/30/19 06:59 06:59 06:59 Intake Total 1000 Balance 1000 Weight 67.8 kg General appearance: PRESENT: cooperative Head exam: PRESENT: atraumatic, normocephalic Eye exam: PRESENT: EOMI. ABSENT: scleral icterus Mouth exam: PRESENT: moist, neck supple Neck exam: ABSENT: meningismus, tenderness, thyromegaly, tracheal deviation Respiratory exam: PRESENT: unlabored. ABSENT: tachypnea, wheezes Cardiovascular exam: PRESENT: tachycardia Vascular exam: PRESENT: pallor GI/Abdominal exam: PRESENT: soft, tenderness - mild Rectal exam: PRESENT: deferred Extremities exam: ABSENT: clubbing Musculoskeletal exam: ABSENT: deformity Neurological exam: PRESENT: alert, awake, oriented to person, oriented to place Psychiatric exam: PRESENT: agitated. ABSENT: anxious Focused psych exam: ABSENT: delusional Skin exam: ABSENT: cyanosis, erythema, jaundice Results Laboratory Results: 04/30/19 02:15 04/29/19 04/29/19 04/29/19 19:25 19:25 19:25 WBC 4.4 RBC 4.09 L Hgb 8.7 L Hct 28.0 L MCV 68 L MCH 21.3 L MCHC 31.2 L RDW 19.9 H Plt Count 167 Seg Neutrophils % Not Reportable Sodium 145.7 H Potassium 3.3 L Chloride 106 Carbon Dioxide 29 Anion Gap 11 BUN 11 Creatinine 1.01 Est GFR ( Amer) > 60 Glucose 107 Calcium 8.6 Iron TIBC % Saturation Total Bilirubin 1.6 H AST 100 H Alkaline Phosphatase 203 H Ammonia Total Protein 7.8 Albumin 3.3 L Lipase Urine Color Urine Appearance Urine pH Ur Specific [place] Urine Protein Urine Glucose (UA) Urine Ketones Urine Blood Urine Nitrite Ur Leukocyte Esterase Urine WBC (Auto) Urine RBC (Auto) Blood Type B POSITIVE Antibody Screen NEGATIVE 04/29/19 04/29/19 04/29/19 19:25 19:25 21:45 WBC RBC Hgb Hct MCV MCH MCHC RDW Plt Count Seg Neutrophils % Sodium Potassium Chloride Carbon Dioxide Anion Gap BUN Creatinine Est GFR ( Amer) Glucose Calcium Iron TIBC % Saturation Total Bilirubin AST Alkaline Phosphatase Ammonia 47.0 H Total Protein Albumin Lipase 641.8 H Urine Color YELLOW Urine Appearance CLEAR Urine pH 7.0 Ur Specific [place] 1.013 Urine Protein NEGATIVE Urine Glucose (UA) NEGATIVE Urine Ketones TRACE H Urine Blood NEGATIVE Urine Nitrite NEGATIVE Ur Leukocyte Esterase NEGATIVE Urine WBC (Auto) 1 Urine RBC (Auto) 0 Blood Type Antibody Screen 04/30/19 02:15 WBC RBC Hgb Hct MCV MCH MCHC RDW Plt Count Seg Neutrophils % Sodium 145.5 H Potassium 3.9 Chloride 112 H Carbon Dioxide 23 Anion Gap 11 BUN 13 Creatinine 0.83 Est GFR ( Amer) > 60 Glucose 85 Calcium 7.8 L Iron 68.5 TIBC 432 % Saturation 16 Total Bilirubin 1.9 H AST 80 H Alkaline Phosphatase 151 H Ammonia Total Protein 6.8 Albumin 2.8 L Lipase Urine Color Urine Appearance Urine pH Ur Specific [place] Urine Protein Urine Glucose (UA) Urine Ketones Urine Blood Urine Nitrite Ur Leukocyte Esterase Urine WBC (Auto) Urine RBC (Auto) Blood Type Antibody Screen Assessment & Plan - Diagnosis (1) Hematemesis Qualifiers: Nausea presence: with nausea Qualified Code(s): K92.0 - Hematemesis Is this a current diagnosis for this admission?: Yes - Plan Summary Plan Summary: This is a 64-year-old male with large volume hematemesis on the floor. It is unclear whether his hematemesis is related to arterial or venous bleeding. Plan for upper endoscopy KIRSTIE. The patient has already been ordered blood products (PRBCs and FFP). Bolus the patient with 50 mcg of Sandostatin now, as variceal bleeding is a possibility. Further recommendations to be made after upper endoscopy is performed. The procedure was discussed with the patient, and he gave informed consent. Risk/benefits discussed, and all questions answered.
[2019-04-30] MEDS ORDERED: OCTREOTIDE ACETATE INJ/PF 100 MCG/1 ML SDV IV ONE (03:45)
[2019-04-30 03:50] LABS: FOLATE > 20.00 ng/mL (>2.76)
[2019-04-30] MEDS ORDERED: PROPOFOL INJ 200 MG/20 ML VIAL IV ONE ×2 (03:56→03:57)
[2019-04-30 04:21] LABS: INTERNATIONAL RATION (INR) 1.58
[2019-04-30 04:22] LABS: PARTIAL THROMBOPLASTIN TIME 34.8 SEC (23.5-35.8)
[2019-04-30] MEDS ORDERED: MIDAZOLAM 2 MG/2 ML INJ ONE (04:29)
[2019-04-30] MEDS ORDERED: NORMAL SALINE 500 ML with OCTREOTIDE ACETATE 500 MCG IV PRN ×2 (04:47)
[2019-04-30] MEDS ORDERED: PROPOFOL 1,000 MG/100 ML INFUS..BTL IV ONE (04:57)
[2019-04-30] MEDS: PROPOFOL 1,000 MG/100 ML INFUS..BTL IV PRN ×2 (04:57→09:10)
--- NOTE | 2019-04-30 04:59 | CRITICAL CARE ADMISSION REPORT ---
HPI Date:: 04/30/19 Time:: 03:16 Reason for ICU Reason:: Hematemasis, blood loss anemia HPI: Mr. Kelley is a 64yr old AA male with a hx of current daily ETOH use X30yrs, hepatitis, GERD and HTN that was admitted to the medical floor from the ED today for nausea and vomiting coffee ground emesis. Consult was called to [facility] ICU by the hospitalists after pt had two episodes of vomiting BRB. Hospitalists called surgical consult and ordered PRBC and FFP to be transfused. Upon arrival, pt was awake, alert, oriented and able to answer all questions. Pt reported that he had been feeling unwell for 2-3 days and then had "a few" episodes of coffee ground emesis which brought him to the ED. He states he currently drinks 2 mix drinks per day; denies hx of withdrawal seizures in the past. Pt admits that he does not take his prescribed medications regularly. Pt states he came to the ED with similar symptoms scoped 4 months ago and at that time sent to [facility] where he wa s scoped and states he believes only some polyps were removed, at that time he had a paracentesis once while there as well, but has not required any additional belly taps. He admits to dark colored stools and darker than normal urine. On assessment, pt has no complaints, he is tachy to 110 and hypertensive with SBP ~150s, there is tenderness to the epigastric area and hyperactive bowel sounds. Pt will be admitted to ICU with surgery following. History obtained from:: Patient, previous admssion records - Diagnosis/Plan (1) Acute blood loss anemia Is this a current diagnosis for this admission?: Yes (2) Hypertension Is this a current diagnosis for this admission?: Yes (3) GERD (gastroesophageal reflux disease) Is this a current diagnosis for this admission?: Yes (4) Alcohol abuse Is this a current diagnosis for this admission?: Yes (5) Alcoholic gastritis Is this a current diagnosis for this admission?: Yes (6) Hematemesis Qualifiers: Nausea presence: with nausea Qualified Code(s): K92.0 - Hematemesis Is this a current diagnosis for this admission?: Yes - . Plan Summary: Pulm: * Aspiration precautions, elevate HOB >30 CV: * Continuous tele monitoring * Hx of HTN - continue to monitor and treat for SPB >180 * obtain EKG to monitor Neuro: * Currently A&O X3 - Q2hr neuro exams to assess for acute changes * Current ETOH abuse/use - [facility] protocol with Ativan treatment Renal: * Strict I&O, trend renal indices, replace lytes PRN GI: * GI bleed - surgery following for scope, appreciate recs * Chronic ETOH abuse - MELD 12 * Hx of hepatitis * Hx of GERD - continue IV protonix Heme/onc: * Closely monitor H/H - 8.7 - 6.9 - PRBC ordered * Plts ordered to transfuse * hold anticoagulation at this time ID: * prophylaxis ceftriaxone for concerns with SBP or varices MSK/Skin: * turn Q2 * ambulate with assistance Past Medical History Past Medical History: as per HPI Cardiac Medical History: Reports: Hypertension GI Medical History: Reports: Gastroesophageal Reflux Disease, Hepatitis, Other - Alcoholic gastritis, upper GI bleed Musculoskeltal Medical History: Reports: Arthritis, Gout - QUESTIONABLE Psychiatric Medical History: Reports: Alcohol Dependency Denies: Depression Hematology: Reports: Anemia Social/Family History - Social History Smoking Status: Current Some Day Smoker Cigarettes Packs Per Day: 0.5 Number of Years Smokin Last Time Smoked: 04/29/19 Frequency of Alcohol Use: Heavy Hx Recreational Drug Use: No Drugs: None Hx Prescription Drug Abuse: No - Medication/Allergies Home Medications: Furosemide [Lasix] 40 mg PO DAILY 04/30/19 Omeprazole 20 mg PO DAILY 04/30/19 Spironolactone [Aldactone 100 mg Tablet] 1 tab PO DAILY 04/30/19 Allergies/Adverse Reactions: No Known Allergies Allergy (Verified 04/29/19 18:59) Review of Systems Constitutional: PRESENT: as per HPI, weakness Eyes: ABSENT: visual disturbances Nose, Mouth, and Throat: ABSENT: headache(s) Cardiovascular: ABSENT: chest pain, dyspnea on exertion, edema, palpitations Respiratory: ABSENT: cough, hemoptysis Gastrointestinal: PRESENT: abdominal pain, coffee ground emesis, melena, nausea, vomiting Neurological: PRESENT: dizziness, weakness. ABSENT: numbness, syncope, tingling Physical Exam Vital Signs: Temp Pulse Resp BP Pulse Ox 98.2 F 111 H 20 154/69 H 100 04/30/19 02:18 04/30/19 02:18 04/30/19 02:18 04/30/19 02:18 04/30/19 02:18 Intake & Output 04/28/19 04/29/19 04/30/19 06:59 06:59 06:59 Intake Total 1000 Balance 1000 Weight 67.8 kg Weight/Height Weight 67.8 kg Height 5 ft 6 in General appearance: PRESENT: no acute distress, well-developed, well-nourished Head exam: PRESENT: atraumatic, normocephalic Eye exam: PRESENT: conjunctiva pale, EOMI, PERRLA, scleral icterus Ear exam: PRESENT: normal external ear exam Mouth exam: PRESENT: dry mucosa Neck exam: PRESENT: JVD. ABSENT: tracheal deviation Respiratory exam: PRESENT: clear to auscultation julia, unlabored. ABSENT: crackles, rales, rhonchi, wheezes Cardiovascular exam: PRESENT: +S1, +S2, tachycardia Pulses: PRESENT: +1 pedal pulses bilateral GI/Abdominal exam: PRESENT: hyperactive bowel sounds, tenderness - epigastric. ABSENT: mass, rigid Rectal exam: PRESENT: deferred Extremities exam: ABSENT: tenderness Neurological exam: PRESENT: alert, awake, oriented to person, oriented to place, oriented to time, oriented to situation, CN II-XII grossly intact Psychiatric exam: PRESENT: appropriate affect, normal mood Laboratory/Radiographs Laboratory Results: 04/30/19 02:15 04/29/19 04/29/19 04/29/19 19:25 19:25 19:25 WBC 4.4 RBC 4.09 L Hgb 8.7 L Hct 28.0 L MCV 68 L MCH 21.3 L MCHC 31.2 L RDW 19.9 H Plt Count 167 Seg Neutrophils % Not Reportable Sodium 145.7 H Potassium 3.3 L Chloride 106 Carbon Dioxide 29 Anion Gap 11 BUN 11 Creatinine 1.01 Est GFR ( Amer) > 60 Glucose 107 Calcium 8.6 Iron TIBC % Saturation Total Bilirubin 1.6 H AST 100 H Alkaline Phosphatase 203 H Ammonia Total Protein 7.8 Albumin 3.3 L Lipase Urine Color Urine Appearance Urine pH Ur Specific [place] Urine Protein Urine Glucose (UA) Urine Ketones Urine Blood Urine Nitrite Ur Leukocyte Esterase Urine WBC (Auto) Urine RBC (Auto) Blood Type B POSITIVE Antibody Screen NEGATIVE 04/29/19 04/29/19 04/29/19 19:25 19:25 21:45 WBC RBC Hgb Hct MCV MCH MCHC RDW Plt Count Seg Neutrophils % Sodium Potassium Chloride Carbon Dioxide Anion Gap BUN Creatinine Est GFR ( Amer) Glucose Calcium Iron TIBC % Saturation Total Bilirubin AST Alkaline Phosphatase Ammonia 47.0 H Total Protein Albumin Lipase 641.8 H Urine Color YELLOW Urine Appearance CLEAR Urine pH 7.0 Ur Specific [place] 1.013 Urine Protein NEGATIVE Urine Glucose (UA) NEGATIVE Urine Ketones TRACE H Urine Blood NEGATIVE Urine Nitrite NEGATIVE Ur Leukocyte Esterase NEGATIVE Urine WBC (Auto) 1 Urine RBC (Auto) 0 Blood Type Antibody Screen 04/30/19 02:15 WBC RBC Hgb Hct MCV MCH MCHC RDW Plt Count Seg Neutrophils % Sodium 145.5 H Potassium 3.9 Chloride 112 H Carbon Dioxide 23 Anion Gap 11 BUN 13 Creatinine 0.83 Est GFR ( Amer) > 60 Glucose 85 Calcium 7.8 L Iron 68.5 TIBC 432 % Saturation 16 Total Bilirubin 1.9 H AST 80 H Alkaline Phosphatase 151 H Ammonia Total Protein 6.8 Albumin 2.8 L Lipase Urine Color Urine Appearance Urine pH Ur Specific [place] Urine Protein Urine Glucose (UA) Urine Ketones Urine Blood Urine Nitrite Ur Leukocyte Esterase Urine WBC (Auto) Urine RBC (Auto) Blood Type Antibody Screen Critical Time Critical Time (minutes): 60 - not including procedures -: The care of a critically ill patient is dynamic. This note represents a static moment in the admission process. Orders and treatments may be given simultaneously and urgently, and time is not clearance representative of the treatment process. This patient requires Critical Care secondary to life threatening organ or limb dysfunction. Without Critical Care services, the patient is at risk for increased mortality and morbidity.
--- NOTE | 2019-04-30 05:00 | Operative Report ---
Nonrecallable Operative Report DATE OF SURGERY: 04/30/19 PREOPERATIVE DIAGNOSIS: Upper GI bleeding, hematemesis POSTOPERATIVE DIAGNOSIS: 1. Dilated distal esophageal varices with evidence of recent bleeding, including fresh clot. 2. Dilated gastric varices. 3. Large amount of blood in the stomach, fresh, with clot. OPERATION: EGD SURGEON: LISA LERNER ANESTHESIA: GA TISSUE REMOVED OR ALTERED: None COMPLICATIONS: None apparent ESTIMATED BLOOD LOSS: Large amount of blood within the stomach, upon entry. PROCEDURE: Procedure in detail: After informed consent was obtained, the patient was brought into the operating room and laid in the supine position. After general endotracheal anesthesia was administered, the endoscope was passed down the oropharynx, down the esophagus, and into the stomach. There was a large amount of blood within the stomach. There were fresh appearing clots within the stomach. This was irrigated and suctioned in order to remove the vast majority of the clot and blood. Once the mucosa of the stomach was able to be examined, inspection of the stomach was undertaken. In the cardia of the stomach, there were dilated gastric varices. There was no active bleeding within the lumen of the stomach. The gastric body and antrum were then investigated. There was a very mild amount of gastritis. The scope was pushed through the pylorus and into the duodenum. The duodenum, although mildly inflamed, did not have any evidence of active bleeding or clot. The scope was then withdrawn into the body of the stomach, and up through the GE junction. At the GE junction there was evidence of fresh appearing clot. This was irrigated. There was no sign of Mirna-Green tear or mucosal abnormality. There were dilated distal esophageal varices present. At the time of the EGD, there was no active bleeding (although there was a large amount of fresh appearing blood). The scope was then withdrawn up the remainder of the esophagus. The scope was withdrawn out the oropharynx, and the procedure was concluded. All sponge, instrument, and needle counts were correct. Condition: Fair. Recommendation: Continue Sandostatin drip. If the patient rebleeds, the most appropriate next step in his care would be transfer to tertiary care facility.
[2019-04-30] MEDS: LORAZEPAM INJ 2 MG/1 ML VIAL IV PRN ×2 (05:10→09:11)
[2019-04-30] MEDS ORDERED: RINGERS SOLUTION,LACTATED 1,000 ML IV PRN (05:17)
--- NOTE | 2019-04-30 05:52 | RADIOLOGY REPORT (SQ) ---
Chest single view on 04/30/2019 at 5:14 AM CLINICAL INDICATION: ET tube placement COMPARISON: 04/29/2019 FINDINGS: ET tube tip is in the lower thoracic trachea approximately 1.5 cm above the level of the carla. Consider retraction of the ET tube by 2 cm for more optimal positioning. There is some gaseous distention of the stomach likely related to the recent intubation. There is minimal basilar atelectasis. The lungs are otherwise clear. Heart is upper limits normal for size. Pulmonary vascularity is within normal limits. IMPRESSION: ET tube tip in the lower thoracic trachea with otherwise no significant change.
[2019-04-30] MEDS ORDERED: CEFTRIAXONE 1 GM/D5W RTU 1 GM/50 ML RTUPB IV SCH (06:00)
--- NOTE | 2019-04-30 08:53 | PDOC PROGRESS REPORT ---
Subjective Progress Note for:: 04/30/19 Subjective:: sedated, intubated Reason For Visit: ALCOHOLIC GASTRITIS,ANEMIA,ALCOHOL WITHDRAW Physical Exam Vital Signs: Temp Pulse Resp BP Pulse Ox 98.1 F 94 12 154/90 H 100 04/30/19 08:38 04/30/19 08:38 04/30/19 08:38 04/30/19 08:38 04/30/19 08:38 Intake & Output 04/29/19 04/30/19 05/01/19 06:59 06:59 06:59 Intake Total 1955.2 310 Output Total 200 Balance 1955.2 110 Weight 68 kg General appearance: PRESENT: other - sedated, intubated Head exam: PRESENT: atraumatic Respiratory exam: PRESENT: clear to auscultation julia Cardiovascular exam: PRESENT: RRR GI/Abdominal exam: PRESENT: distended, hypoactive bowel sounds, soft Results Laboratory Results: 04/30/19 02:15 04/30/19 02:15 04/29/19 04/29/19 04/29/19 19:25 19:25 19:25 WBC 4.4 RBC 4.09 L Hgb 8.7 L Hct 28.0 L MCV 68 L MCH 21.3 L MCHC 31.2 L RDW 19.9 H Plt Count 167 Seg Neutrophils % Not Reportable Retic Count (auto) Sodium 145.7 H Potassium 3.3 L Chloride 106 Carbon Dioxide 29 Anion Gap 11 BUN 11 Creatinine 1.01 Est GFR ( Amer) > 60 Glucose 107 Calcium 8.6 Iron TIBC % Saturation Ferritin Total Bilirubin 1.6 H AST 100 H Alkaline Phosphatase 203 H Ammonia Total Protein 7.8 Albumin 3.3 L Lipase Vitamin B12 Folate Urine Color Urine Appearance Urine pH Ur Specific [place] Urine Protein Urine Glucose (UA) Urine Ketones Urine Blood Urine Nitrite Ur Leukocyte Esterase Urine WBC (Auto) Urine RBC (Auto) Blood Type B POSITIVE Antibody Screen NEGATIVE 04/29/19 04/29/19 04/29/19 19:25 19:25 21:45 WBC RBC Hgb Hct MCV MCH MCHC RDW Plt Count Seg Neutrophils % Retic Count (auto) Sodium Potassium Chloride Carbon Dioxide Anion Gap BUN Creatinine Est GFR ( Amer) Glucose Calcium Iron TIBC % Saturation Ferritin Total Bilirubin AST Alkaline Phosphatase Ammonia 47.0 H Total Protein Albumin Lipase 641.8 H Vitamin B12 Folate Urine Color YELLOW Urine Appearance CLEAR Urine pH 7.0 Ur Specific [place] 1.013 Urine Protein NEGATIVE Urine Glucose (UA) NEGATIVE Urine Ketones TRACE H Urine Blood NEGATIVE Urine Nitrite NEGATIVE Ur Leukocyte Esterase NEGATIVE Urine WBC (Auto) 1 Urine RBC (Auto) 0 Blood Type Antibody Screen 04/30/19 04/30/19 02:15 02:15 WBC 5.9 RBC 3.19 L Hgb 6.9 L Hct 21.8 L MCV 69 L MCH 21.7 L MCHC 31.6 L RDW 19.8 H Plt Count 142 L Seg Neutrophils % Not Reportable Retic Count (auto) 1.90 Sodium 145.5 H Potassium 3.9 Chloride 112 H Carbon Dioxide 23 Anion Gap 11 BUN 13 Creatinine 0.83 Est GFR ( Amer) > 60 Glucose 85 Calcium 7.8 L Iron 68.5 TIBC 432 % Saturation 16 Ferritin 9.34 L Total Bilirubin 1.9 H AST 80 H Alkaline Phosphatase 151 H Ammonia Total Protein 6.8 Albumin 2.8 L Lipase Vitamin B12 658.0 Folate > 20.00 Urine Color Urine Appearance Urine pH Ur Specific [place] Urine Protein Urine Glucose (UA) Urine Ketones Urine Blood Urine Nitrite Ur Leukocyte Esterase Urine WBC (Auto) Urine RBC (Auto) Blood Type Antibody Screen Impressions: Chest X-Ray 04/30/19 00:00 IMPRESSION: ET tube tip in the lower thoracic trachea with otherwise no significant change. Assessment & Plan - Diagnosis (2) GI bleed Qualifiers: GI bleed type/associated pathology: gastrointestinal hemorrhage with hematemesis Qualified Code(s): K92.0 - Hematemesis Is this a current diagnosis for this admission?: Yes - Time Time Spent with patient: 15-24 minutes - Plan Summary Plan Summary: A/ Events noted S/p EGD with esophageal/gastric varices, none actively bleeding Patient HD stable now Intubated, sedated Abdomen soft but distended P/ No additional General Surgery theraputic options available at this point Patient would benefit from aggressive GI Service treatment (prophylactic variceal banding) as well as IR (TIPS) We recommend that the patient be transferred to tertiary center with above capabilities, not available at this facility. Consider NGT placement as the abdomen is very distended and the patient might vomit post extubation and aspirate. I will sign off, please call us back with questions.
[2019-04-30] MEDS: NORMAL SALINE 100 ML with PANTOPRAZOLE SODIUM 80 MG IV PRN ×4 (09:09→18:35)
[2019-04-30] MEDS: NORMAL SALINE 500 ML with OCTREOTIDE ACETATE 500 MCG IV PRN ×4 (09:09→20:05)
[2019-04-30 10:59] LABS: HEMATOCRIT 29.6 % (37.9-51.0); MEAN CORPUSCULAR HEMOGLOBIN 22.2 pg (27.0-33.4); MEAN CORPUSCULAR HGB CONC 32.3 g/dL (32.0-36.0); MEAN CORPUSCULAR VOLUME 69 fl (80-97); PLATELET COUNT 120 10^3/uL (150-450); RED BLOOD COUNT 4.31 10^6/uL (4.35-5.55); RED CELL DISTRIBUTION WIDTH 23.2 % (11.5-14.0); WHITE BLOOD COUNT 5.9 10^3/uL (4.0-10.5)
[2019-04-30] MEDS ORDERED: SUCCINYLCHOLINE CHLORIDE INJ 200 MG/10 ML VIAL ONE (12:05)
--- NOTE | 2019-04-30 12:28 | Progress Note ---
Provider Note Provider Note: 64yo M admitted overnight with GI bleed. Patient was never hypotensive but was tachycardic and symptomatic from his hemorrhage. He was taken to the operating room for upper endoscopy where copious clots were removed but no source of active hemorrhage was noted. The patient was brought back to the ICU intubated and sedated on propofol. Over the morning he has been doing well with a normal blood pressure and HR and pulling large volumes on the ventilator with only minor pressure support. After decreasing his sedation he was able to follow commands, his RSBI was < 20 and he was extubated. He will be monitored closely and given Ativan as needed for withdrawal symptoms. Labs pending from repeat draw at 1200. Per surgery team, there is nothing else they can do at this point and should he bleed again he will require transfer to a facility with advanced GI/IR capabilities. Family updated regarding this plan.
[2019-04-30 12:55] LABS: HEMATOCRIT 28.5 % (37.9-51.0); HEMOGLOBIN 9.4 g/dL (13.5-17.0); MEAN CORPUSCULAR HEMOGLOBIN 22.5 pg (27.0-33.4); MEAN CORPUSCULAR VOLUME 68 fl (80-97); PLATELET COUNT 112 10^3/uL (150-450); RED BLOOD COUNT 4.19 10^6/uL (4.35-5.55); WHITE BLOOD COUNT 5.7 10^3/uL (4.0-10.5)
[2019-04-30 12:58] LABS: HEMOGLOBIN 9.6 g/dL (13.5-17.0)
[2019-04-30 13:00] LABS: INTERNATIONAL RATION (INR) 1.35; PROTHROMBIN TIME 16.8 SEC (11.4-15.4)
[2019-04-30 13:00] LABS: ABSOLUTE LYMPHOCYTES# (MANUAL) 0.4 10^3/uL (0.5-4.7); ABSOLUTE MONOCYTES # (MANUAL) 0.1 10^3/uL (0.1-1.4); ANISOCYTOSIS 3+; BASOPHILS % (MANUAL) 0 % (0-2); EOSINOPHILS % (MANUAL) 0 % (0-6); HYPOCHROMASIA 2+; LYMPHOCYTES % (MANUAL) 7 % (13-45); MONOCYTES % (MANUAL) 1 % (3-13); NUCLEATED RED BLOOD CELLS 1 /100 WBC (0); OVALOCYTES SLIGHT; PLATELET COMMENT DECREASED; POIKILOCYTOSIS SLIGHT; SEGMENTED NEUTROPHILS % (MAN) 92 % (42-78); TARGET CELLS 1+; TOTAL CELLS COUNTED 100
[2019-04-30 13:01] LABS: PARTIAL THROMBOPLASTIN TIME 33.5 SEC (23.5-35.8)
[2019-04-30 13:10] LABS: ALBUMIN 2.9 g/dL (3.5-5.0); ALKALINE PHOSPHATASE 150 U/L (38-126); ANION GAP 10 (5-19); ASPARTATE AMINO TRANSFERASE 83 U/L (17-59); BILIRUBIN,DIRECT 1.8 mg/dL (0.0-0.4); BILIRUBIN,TOTAL 2.7 mg/dL (0.2-1.3); BLOOD UREA NITROGEN 14 mg/dL (7-20); CALCIUM 8.1 mg/dL (8.4-10.2); CARBON DIOXIDE 26 mmol/L (22-30); CHLORIDE 110 mmol/L (98-107); GLUCOSE 72 mg/dL (75-110); PHOSPHORUS 3.5 mg/dL (2.5-4.5); POTASSIUM 4.2 mmol/L (3.6-5.0)
[2019-04-30] MEDS ORDERED: HYDRALAZINE HCL INJ/PF 20 MG/1 ML SDV IV ONE (13:30)
[2019-04-30 13:32] LABS: ABSOLUTE LYMPHOCYTES# (MANUAL) 1.4 10^3/uL (0.5-4.7); ABSOLUTE MONOCYTES # (MANUAL) 0.4 10^3/uL (0.1-1.4); ANISOCYTOSIS 3+; BASOPHILS % (MANUAL) 0 % (0-2); EOSINOPHILS % (MANUAL) 1 % (0-6); LYMPHOCYTES % (MANUAL) 24 % (13-45); MONOCYTES % (MANUAL) 7 % (3-13); POLYCHROMASIA SLIGHT; SEGMENTED NEUTROPHILS % (MAN) 68 % (42-78); TOTAL CELLS COUNTED 100
[2019-04-30 13:33] LABS: HYPOCHROMASIA 2+; PLATELET COMMENT DECREASED; TARGET CELLS 1+
[2019-04-30] MEDS ORDERED: METOPROLOL TARTRATE PF/INJ 5 MG/5 ML SDV IV PRN (14:40)
[2019-04-30 17:13] LABS: HEMOGLOBIN 10.1 g/dL (13.5-17.0); MEAN CORPUSCULAR HEMOGLOBIN 22.3 pg (27.0-33.4); MEAN CORPUSCULAR HGB CONC 32.6 g/dL (32.0-36.0); MEAN CORPUSCULAR VOLUME 69 fl (80-97); PLATELET COUNT 120 10^3/uL (150-450); RED BLOOD COUNT 4.52 10^6/uL (4.35-5.55); RED CELL DISTRIBUTION WIDTH 23.4 % (11.5-14.0); WHITE BLOOD COUNT 5.5 10^3/uL (4.0-10.5)
[2019-04-30] MEDS ORDERED: THIAMINE HCL 100 MG, FOLIC ACID 1 MG in NORMAL SALINE 250 ML IV SCH (18:00)
[2019-04-30 19:55] LABS: ARTERIAL BLOOD H2CO3 1.13 mmol/L (1.05-1.35); ARTERIAL BLOOD HCO3 27.5 mmol/L (20-24); ARTERIAL BLOOD O2 SATURATION 71.7 % (94-98); ARTERIAL BLOOD PCO2 37.5 mmHg (35-45); ARTERIAL BLOOD PH 7.48 (7.35-7.45); ARTERIAL BLOOD TOTAL CO2 28.6 mmol/L (23-27)
[2019-04-30 19:56] LABS: ARTERIAL BLOOD FIO2 ROOM AIR
[2019-04-30 19:59] LABS: ARTERIAL BLOOD PO2 34.8 mmHg (80-100)
[2019-04-30] MEDS ORDERED: LACTULOSE SYRUP 20 GM/30 ML UDCUP PR ONE (21:15)
[2019-04-30] MEDS: MAGNESIUM SULFATE/D5W 1 GM/100 ML RTUPB IV SCH ×2 (21:44→22:43)
--- NOTE | 2019-05-01 01:02 | EKG REPORT ---
SEVERITY:- ABNORMAL ECG - SINUS TACHYCARDIA BORDERLINE T ABNORMALITIES, INFERIOR LEADS PROLONGED QT INTERVAL : Confirmed by: Chen Brenner MD 01-May-2019 01:02:04
[2019-05-01] MEDS: NORMAL SALINE 100 ML with PANTOPRAZOLE SODIUM 80 MG IV PRN ×2 (02:42)
[2019-05-01 04:41] LABS: HEMATOCRIT 28.4 % (37.9-51.0); HEMOGLOBIN 9.2 g/dL (13.5-17.0); MEAN CORPUSCULAR HEMOGLOBIN 22.5 pg (27.0-33.4); MEAN CORPUSCULAR HGB CONC 32.3 g/dL (32.0-36.0); MEAN CORPUSCULAR VOLUME 70 fl (80-97); PLATELET COUNT 116 10^3/uL (150-450); RED BLOOD COUNT 4.07 10^6/uL (4.35-5.55); RED CELL DISTRIBUTION WIDTH 23.4 % (11.5-14.0); WHITE BLOOD COUNT 4.8 10^3/uL (4.0-10.5)
[2019-05-01 04:44] LABS: INTERNATIONAL RATION (INR) 1.47
[2019-05-01 04:45] LABS: PARTIAL THROMBOPLASTIN TIME 32.2 SEC (23.5-35.8)
[2019-05-01 05:00] LABS: ALBUMIN 2.6 g/dL (3.5-5.0); ALKALINE PHOSPHATASE 124 U/L (38-126); ANION GAP 6 (5-19); ASPARTATE AMINO TRANSFERASE 85 U/L (17-59); BILIRUBIN,DIRECT 1.5 mg/dL (0.0-0.4); BILIRUBIN,TOTAL 2.7 mg/dL (0.2-1.3); BLOOD UREA NITROGEN 15 mg/dL (7-20); CALCIUM 7.5 mg/dL (8.4-10.2); CARBON DIOXIDE 26 mmol/L (22-30); CHLORIDE 114 mmol/L (98-107); GLUCOSE 82 mg/dL (75-110); POTASSIUM 3.5 mmol/L (3.6-5.0); TOTAL PROTEIN 6.4 g/dL (6.3-8.2)
[2019-05-01 05:19] LABS: ABSOLUTE LYMPHOCYTES# (MANUAL) 0.9 10^3/uL (0.5-4.7); ABSOLUTE MONOCYTES # (MANUAL) 0.1 10^3/uL (0.1-1.4); BASOPHILS % (MANUAL) 1 % (0-2); EOSINOPHILS % (MANUAL) 2 % (0-6); LYMPHOCYTES % (MANUAL) 18 % (13-45); MONOCYTES % (MANUAL) 3 % (3-13); SEGMENTED NEUTROPHILS % (MAN) 76 % (42-78); TOTAL CELLS COUNTED 100
[2019-05-01 05:20] LABS: ANISOCYTOSIS 3+; PLATELET COMMENT DECREASED
[2019-05-01 05:22] LABS: HYPOCHROMASIA SLIGHT; TARGET CELLS SLIGHT
[2019-05-01 05:23] LABS: OVALOCYTES SLIGHT
[2019-05-01] MEDS: NORMAL SALINE 500 ML with OCTREOTIDE ACETATE 500 MCG IV PRN ×2 (05:59)
[2019-05-01] MEDS: POTASSI CL 20 MEQ/50 ML RIDER 20 MEQ/50 ML RTUPB IV SCH ×2 (06:42→08:40)
[2019-05-01] MEDS ORDERED: LORAZEPAM INJ 2 MG/1 ML VIAL IV PRN (08:56)
[2019-05-01] MEDS ORDERED: FUROSEMIDE 40 MG TABLET PO SCH (10:00)
[2019-05-01] MEDS ORDERED: SPIRONOLACTONE 25 MG TABLET PO SCH (10:00)
--- NOTE | 2019-05-01 11:30 | PDOC CRITICAL CARE PROG REPORT ---
General Date:: 05/01/19 ICU Day:: 2 Hospital Day:: 2 Resuscitation Status: Full Code Events in the past 12 to 24 Hours:: Extubated yesterday successfully. Patient's ammonia was elevated and after a dose of lactulose he is much more clear and alert. No recurrence of bleeding. Reason for ICU Addmission:: Hematemasis, blood loss anemia - Medications: Medications reviewed and adjusted accordingly: Yes Physical Exam Vital Signs: Temp Pulse Resp BP Pulse Ox 98.4 F 69 17 183/99 H 98 05/01/19 08:18 05/01/19 10:00 05/01/19 08:18 05/01/19 08:18 05/01/19 08:18 Intake & Output 04/30/19 05/01/19 05/02/19 06:59 06:59 06:59 Intake Total 1955.2 2357.2 49 Output Total 1690 150 Balance 1955.2 667.2 -101 Weight 68 kg 69.5 kg Weight/Height Weight 69.5 kg Height 5 ft 6 in General appearance: PRESENT: no acute distress, well-developed, well-nourished Head exam: PRESENT: atraumatic, normocephalic Eye exam: PRESENT: conjunctiva pale, EOMI, PERRLA. ABSENT: scleral icterus Ear exam: PRESENT: normal external ear exam Mouth exam: PRESENT: moist, tongue midline Neck exam: ABSENT: carotid bruit, JVD, lymphadenopathy, thyromegaly Respiratory exam: PRESENT: clear to auscultation julia. ABSENT: rales, rhonchi, wheezes Cardiovascular exam: PRESENT: tachycardia. ABSENT: diastolic murmur, systolic murmur Pulses: PRESENT: normal radial pulses, normal dorsalis pedis pul GI/Abdominal exam: PRESENT: ascites, distended, normal bowel sounds, soft. ABSENT: firm, guarding, rebound, tenderness Rectal exam: PRESENT: deferred Extremities exam: PRESENT: full ROM. ABSENT: calf tenderness, pedal edema Musculoskeletal exam: PRESENT: full ROM Neurological exam: PRESENT: alert, awake, oriented to person, oriented to place, oriented to time, oriented to situation, CN II-XII grossly intact Psychiatric exam: PRESENT: flat affect Skin exam: PRESENT: dry, intact, warm. ABSENT: cyanosis, rash Laboratory/Radiographs Laboratory Results: 05/01/19 04:26 05/01/19 04:26 04/29/19 04/30/19 04/30/19 19:25 10:06 12:38 WBC 5.9 5.7 RBC 4.31 L 4.19 L Hgb 9.6 L D 9.4 L Hct 29.6 L 28.5 L MCV 69 L 68 L MCH 22.2 L 22.5 L MCHC 32.3 33.0 RDW 23.2 H 23.0 H Plt Count 120 L 112 L Seg Neutrophils % Not Reportable Not Reportable Carbonic Acid HCO3/H2CO3 Ratio ABG pH ABG pCO2 ABG pO2 ABG HCO3 ABG O2 Saturation ABG Base Excess FiO2 Sodium Potassium Chloride Carbon Dioxide Anion Gap BUN Creatinine Est GFR ( Amer) Glucose Calcium Phosphorus Magnesium Total Bilirubin AST Alkaline Phosphatase Ammonia Total Protein Albumin TSH Blood Type B POSITIVE Antibody Screen NEGATIVE 04/30/19 04/30/19 04/30/19 12:38 12:38 16:55 WBC 5.5 RBC 4.52 Hgb 10.1 L Hct 31.0 L MCV 69 L MCH 22.3 L MCHC 32.6 RDW 23.4 H Plt Count 120 L Seg Neutrophils % Carbonic Acid HCO3/H2CO3 Ratio ABG pH ABG pCO2 ABG pO2 ABG HCO3 ABG O2 Saturation ABG Base Excess FiO2 Sodium 145.9 H Potassium 4.2 Chloride 110 H Carbon Dioxide 26 Anion Gap 10 BUN 14 Creatinine 0.95 Est GFR ( Amer) > 60 Glucose 72 L Calcium 8.1 L Phosphorus 3.5 Magnesium 1.4 L Total Bilirubin 2.7 H AST 83 H Alkaline Phosphatase 150 H Ammonia Total Protein 7.0 Albumin 2.9 L TSH 0.46 L Blood Type Antibody Screen 04/30/19 04/30/19 05/01/19 19:00 19:48 04:26 WBC RBC Hgb Hct MCV MCH MCHC RDW Plt Count Seg Neutrophils % Carbonic Acid 1.13 HCO3/H2CO3 Ratio 24:1 ABG pH 7.48 H ABG pCO2 37.5 ABG pO2 34.8 L* ABG HCO3 27.5 H ABG O2 Saturation 71.7 L ABG Base Excess 4.0 FiO2 ROOM AIR Sodium Potassium Chloride Carbon Dioxide Anion Gap BUN Creatinine Est GFR ( Amer) Glucose Calcium Phosphorus Magnesium Total Bilirubin AST Alkaline Phosphatase Ammonia 56.1 H 36.1 H Total Protein Albumin TSH Blood Type Antibody Screen 05/01/19 05/01/19 04:26 04:26 WBC 4.8 RBC 4.07 L Hgb 9.2 L Hct 28.4 L MCV 70 L MCH 22.5 L MCHC 32.3 RDW 23.4 H Plt Count 116 L Seg Neutrophils % Not Reportable Carbonic Acid HCO3/H2CO3 Ratio ABG pH ABG pCO2 ABG pO2 ABG HCO3 ABG O2 Saturation ABG Base Excess FiO2 Sodium 146.0 H Potassium 3.5 L Chloride 114 H Carbon Dioxide 26 Anion Gap 6 BUN 15 Creatinine 0.96 Est GFR ( Amer) > 60 Glucose 82 Calcium 7.5 L Phosphorus 3.0 Magnesium 1.9 Total Bilirubin 2.7 H AST 85 H Alkaline Phosphatase 124 Ammonia Total Protein 6.4 Albumin 2.6 L TSH Blood Type Antibody Screen Impressions: Chest X-Ray 04/30/19 00:00 IMPRESSION: ET tube tip in the lower thoracic trachea with otherwise no significant change. All labs, radiographs, diagnostic studies and EKGs were personally reviewed: Yes In addition, reports of radiographic and diagnostic studies were read: Yes Assessment and Plan - Diagnosis (1) GI bleed Qualifiers: GI bleed type/associated pathology: gastrointestinal hemorrhage with hematemesis Qualified Code(s): K92.0 - Hematemesis Is this a current diagnosis for this admission?: Yes (2) Ascites due to alcoholic cirrhosis Is this a current diagnosis for this admission?: Yes (3) Acute blood loss anemia Is this a current diagnosis for this admission?: Yes (4) Alcohol abuse Is this a current diagnosis for this admission?: Yes (5) GERD (gastroesophageal reflux disease) Is this a current diagnosis for this admission?: Yes (6) Hypertension Is this a current diagnosis for this admission?: Yes Plan Summary: 64yo M s/p diagnostic endoscopy after upper GI hemorrhage secondary to gastroesophageal varices. The patient was extubated yesterday, has shown no signs of withdrawal, and has had no recurrence of hemorrhage. His ammonia was elevated and after lactulose he is much more alert/awake. Stop octreotide drip today. Change Protonix drip to BID. Will decrease ativan to much lower dose as it affects him heavily. Additionally, after passing a bedside swallow study will give a diet. Patient ok for transfer back to medicine floor. Should he bleed again surgery team has directed he will need to be transferred to another hospital with advanced GI capability or IR. Critical Time Critical Time (minutes): 60 Level of Care: ICU Anticipated discharge: Home Within: within 72 hours -: 1. The care of a critical patient is a dynamic process. This note is a sales representative supervisor synopsis but static in nature. The timeframe for treatments given in order is not necessarily the actual time these treatments may have been done. 2. This patient requires critical care secondary to ongoing requirements for therapy not offered or safe outside the critical care environment. Transfer to a lower level of care will result in altered life or limb morbidity and mortality. 3. Multidisciplinary rounds completed. 4. ABCDE bundle addressed.
[2019-05-01 12:28] VITALS: BP 166/79
--- NOTE | 2019-05-01 12:57 | PDOC TRANSFER SUMMARY ---
Impression - Admit/DC Date/PCP Admission Date/Primary Care Provider: 04/29/19 23:04 Discharge Date: 05/01/19 - Discharge Diagnosis (1) GI bleed Is this a current diagnosis for this admission?: Yes (2) Ascites due to alcoholic cirrhosis Is this a current diagnosis for this admission?: Yes (3) Acute blood loss anemia Is this a current diagnosis for this admission?: Yes (4) Alcohol abuse Is this a current diagnosis for this admission?: Yes (5) GERD (gastroesophageal reflux disease) Is this a current diagnosis for this admission?: Yes (6) Hypertension Is this a current diagnosis for this admission?: Yes - Assessment Summary: Patient was admitted to the hospital with alcoholic gastritis and an upper GI bleed. He was taken to the operating room for endoscopy where blood clots were found in his stomach along with gastroesophageal varices but no active source of hemorrhage was noted. He was iman to the ICU intubated where he was extubated shortly after and started back on his home medications. After 36 hours with stable vitals, stable hemoglobin and no evidence of repeat bleeding he requested to be admitted to an inpatient alcohol rehab facility. He was discharged in the care of his to the rehab facility who is capable of providing medications as needed should he show signs of withdrawal. He should continue his protonix twice daily until seen by his PCM. - Additional Information Resuscitation Status: Full Code Discharge Diet: Cardiac Discharge Activity: Activity As Tolerated Prescriptions: Pantoprazole Sodium [Protonix [address] Tablet] 40 mg PO BID@0600,1700 30 Days tablet. Home Medications: Spironolactone [Aldactone 100 mg Tablet] 1 tab PO DAILY 04/30/19 Furosemide [Lasix 40 mg Tablet] 40 mg PO DAILY tablet 05/01/19 Furosemide [Lasix] 40 mg PO DAILY 30 Days #60 05/01/19 Pantoprazole Sodium [Protonix [address] Tablet] 40 mg PO BID@0600,1700 30 Days tablet. 05/01/19 Pantoprazole Sodium [Protonix IV Inj 40 mg Vial] 40 mg IV Q12 vial 05/01/19 Spironolactone [Aldactone 25 mg Tablet] 100 mg PO DAILY tablet 05/01/19 Additional Information: Discharging from ICU to inpatient alcohol rehab facility. History of Present Illiness History of Present Illness: BEE MARK is a 64 year old male Physical Exam Vital Signs: Temp Pulse Resp BP Pulse Ox 98.6 F 69 17 166/79 H 99 05/01/19 12:20 05/01/19 12:13 05/01/19 12:20 05/01/19 12:20 05/01/19 12:20 Intake & Output 04/30/19 05/01/19 05/02/19 06:59 06:59 06:59 Intake Total 1955.2 2357.2 399 Output Total 1690 450 Balance 1955.2 667.2 -51 Weight 68 kg 69.5 kg Results Laboratory Results: WBC 4.8 10^3/uL (4.0-10.5) 05/01/19 04:26 RBC 4.07 10^6/uL (4.35-5.55) L 05/01/19 04:26 Hgb 9.2 g/dL (13.5-17.0) L 05/01/19 04:26 Hct 28.4 % (37.9-51.0) L 05/01/19 04:26 MCV 70 fl (80-97) L 05/01/19 04:26 MCH 22.5 pg (27.0-33.4) L 05/01/19 04:26 MCHC 32.3 g/dL (32.0-36.0) 05/01/19 04:26 RDW 23.4 % (11.5-14.0) H 05/01/19 04:26 Plt Count 116 10^3/uL (150-450) L 05/01/19 04:26 Lymph % (Auto) Not Reportable 05/01/19 04:26 Cat[place] % (Auto) Not Reportable 05/01/19 04:26 Eos % (Auto) Not Reportable 05/01/19 04:26 Baso % (Auto) Not Reportable 05/01/19 04:26 Reticulocyte # 0.061 10^6/uL (0.028-0.122) 04/30/19 02:15 Absolute Neuts (auto) Not Reportable 05/01/19 04:26 Absolute Lymphs (auto) Not Reportable 05/01/19 04:26 Absolute Monos (auto) Not Reportable 05/01/19 04:26 Absolute Eos (auto) Not Reportable 05/01/19 04:26 Absolute Basos (auto) Not Reportable 05/01/19 04:26 Total Counted 100 05/01/19 04:26 Seg Neutrophils % Not Reportable 05/01/19 04:26 Seg Neuts % (Manual) 76 % (42-78) 05/01/19 04:26 Band Neutrophils % 1 % (3-5) L 04/29/19 19:25 Lymphocytes % (Manual) 18 % (13-45) 05/01/19 04:26 Monocytes % (Manual) 3 % (3-13) 05/01/19 04:26 Eosinophils % (Manual) 2 % (0-6) 05/01/19 04:26 Basophils % (Manual) 1 % (0-2) 05/01/19 04:26 Abs Neuts (Manual) 3.6 10^3/uL (1.7-8.2) 05/01/19 04:26 Abs Lymphs (Manual) 0.9 10^3/uL (0.5-4.7) 05/01/19 04:26 Abs Monocytes (Manual) 0.1 10^3/uL (0.1-1.4) 05/01/19 04:26 Absolute Eos (Manual) 0.1 10^3/uL (0.0-0.6) 05/01/19 04:26 Abs Basophils (Manual) 0.0 10^3/uL (0.0-0.2) 05/01/19 04:26 Nucleated RBCs 1 /100 WBC (0) 04/30/19 10:06 Toxic Granulation SLIGHT 04/30/19 02:15 Platelet Comment DECREASED 05/01/19 04:26 Polychromasia SLIGHT 04/30/19 12:38 Hypochromasia SLIGHT 05/01/19 04:26 Poikilocytosis SLIGHT 04/30/19 10:06 Anisocytosis 3+ 05/01/19 04:26 Microcytosis 2+ 05/01/19 04:26 Target Cells SLIGHT 05/01/19 04:26 Tear Drop Cells SLIGHT 04/30/19 02:15 Ovalocytes SLIGHT 05/01/19 04:26 Schistocytes SLIGHT 04/30/19 02:15 Retic Count (auto) 1.90 % (0.66-2.85) 04/30/19 02:15 PT 18.0 SEC (11.4-15.4) H 05/01/19 04:26 INR 1.47 05/01/19 04:26 APTT 32.2 SEC (23.5-35.8) 05/01/19 04:26 Carbonic Acid 1.13 mmol/L (1.05-1.35) 04/30/19 19:48 HCO3/H2CO3 Ratio 24:1 04/30/19 19:48 ABG pH 7.48 (7.35-7.45) H 04/30/19 19:48 ABG pCO2 37.5 mmHg (35-45) 04/30/19 19:48 ABG pO2 34.8 mmHg (80-100) L* 04/30/19 19:48 ABG HCO3 27.5 mmol/L (20-24) H 04/30/19 19:48 ABG Total CO2 28.6 mmol/L (23-27) H 04/30/19 19:48 ABG O2 Saturation 71.7 % (94-98) L 04/30/19 19:48 ABG Base Excess 4.0 mmol/L 04/30/19 19:48 FiO2 ROOM AIR 04/30/19 19:48 Sodium 146.0 mmol/L (137-145) H 05/01/19 04:26 Potassium 3.5 mmol/L (3.6-5.0) L 05/01/19 04:26 Chloride 114 mmol/L (98-107) H 05/01/19 04:26 Carbon Dioxide 26 mmol/L (22-30) 05/01/19 04:26 Anion Gap 6 (5-19) 05/01/19 04:26 BUN 15 mg/dL (7-20) 05/01/19 04:26 Creatinine 0.96 mg/dL (0.52-1.25) 05/01/19 04:26 Est GFR ( Amer) > 60 (>60) 05/01/19 04:26 Est GFR (MDRD) Non-Af > 60 (>60) 05/01/19 04:26 Glucose 82 mg/dL (75-110) 05/01/19 04:26 POC Glucose 81 mg/dL (70-110) 04/30/19 20:28 Calcium 7.5 mg/dL (8.4-10.2) L 05/01/19 04:26 Phosphorus 3.0 mg/dL (2.5-4.5) 05/01/19 04:26 Magnesium 1.9 mg/dL (1.6-2.3) 05/01/19 04:26 Iron 68.5 ug/dL (49-181) 04/30/19 02:15 TIBC 432 ug/dL (250-450) 04/30/19 02:15 % Saturation 16 % 04/30/19 02:15 Ferritin 9.34 ng/mL (17.9-464.0) L 04/30/19 02:15 Total Bilirubin 2.7 mg/dL (0.2-1.3) H 05/01/19 04:26 Direct Bilirubin 1.5 mg/dL (0.0-0.4) H 05/01/19 04:26 Neonat Total Bilirubin Not Reportable 05/01/19 04:26 Neonat Direct Bilirubin Not Reportable 05/01/19 04:26 Neonat Indirect Bili Not Reportable 05/01/19 04:26 AST 85 U/L (17-59) H 05/01/19 04:26 ALT 20 U/L (<50) 05/01/19 04:26 Alkaline Phosphatase 124 U/L (38-126) 05/01/19 04:26 Ammonia 36.1 umol/L (9-33) H 05/01/19 04:26 Total Protein 6.4 g/dL (6.3-8.2) 05/01/19 04:26 Albumin 2.6 g/dL (3.5-5.0) L 05/01/19 04:26 Lipase 641.8 U/L (23-300) H 04/29/19 19:25 Vitamin B12 658.0 pg/mL (239-931) 04/30/19 02:15 Folate > 20.00 ng/mL (>2.76) 04/30/19 02:15 TSH 0.46 uIU/mL (0.47-4.68) L 04/30/19 12:38 Urine Color YELLOW 04/29/19 21:45 Urine Appearance CLEAR 04/29/19 21:45 Urine pH 7.0 (5.0-9.0) 04/29/19 21:45 Ur Specific [place] 1.013 04/29/19 21:45 Urine Protein NEGATIVE mg/dL (NEGATIVE) 04/29/19 21:45 Urine Glucose (UA) NEGATIVE mg/dL (NEGATIVE) 04/29/19 21:45 Urine Ketones TRACE mg/dL (NEGATIVE) H 04/29/19 21:45 Urine Blood NEGATIVE (NEGATIVE) 04/29/19 21:45 Urine Nitrite NEGATIVE (NEGATIVE) 04/29/19 21:45 Urine Bilirubin NEGATIVE (NEGATIVE) 04/29/19 21:45 Urine Urobilinogen 4.0 mg/dL (<2.0) H 04/29/19 21:45 Ur Leukocyte Esterase NEGATIVE (NEGATIVE) 04/29/19 21:45 Urine WBC (Auto) 1 /HPF 04/29/19 21:45 Urine RBC (Auto) 0 /HPF 04/29/19 21:45 U Hyaline Cast (Auto) 1 /LPF 04/29/19 21:45 Squamous Epi Cells Auto <1 /HPF 04/29/19 21:45 Urine Mucus (Auto) RARE /LPF 04/29/19 21:45 Urine Ascorbic Acid NEGATIVE (NEGATIVE) 04/29/19 21:45 Urine Opiates Screen NEGATIVE 04/29/19 21:45 Urine Methadone Screen NEGATIVE 04/29/19 21:45 Ur Barbiturates Screen NEGATIVE 04/29/19 21:45 Ur Phencyclidine Scrn NEGATIVE 04/29/19 21:45 Ur Amphetamines Screen NEGATIVE 04/29/19 21:45 U Benzodiazepines Scrn NEGATIVE 04/29/19 21:45 Urine Cocaine Screen NEGATIVE 04/29/19 21:45 U Marijuana (THC) Screen NEGATIVE 04/29/19 21:45 Serum Alcohol 116 mg/dL (NONE DETECTED) 04/29/19 19:25 Blood Type B POSITIVE 04/29/19 19:25 Blood Type Confirm B POSITIVE 04/29/19 19:25 Antibody Screen NEGATIVE 04/29/19 19:25 Crossmatch See Detail 04/29/19 19:25 Impressions: Chest X-Ray 04/30/19 00:00 IMPRESSION: ET tube tip in the lower thoracic trachea with otherwise no significant change. Stroke Is this a Stroke Patient?: No Acute Heart Failure - Is this a Heart Failure Patient?: No
[2019-05-01] MEDS ORDERED: PANTOPRAZOLE SODIUM 40 MG TABLET.DR PO SCH (17:00)
[2019-05-01] MEDS ORDERED: PANTOPRAZOLE SODIUM 40 MG VIAL IV SCH (22:00)
== END 2019-05-01 13:15 | disposition home or self-care (01) | DRG 369 ==
LOC: ER 18:14 → EH 23:04 → 3S 04-30 00:48 → ICU 04-30 03:30
PROVIDERS: ADMIT Internal Medicine; ATTEND Surgery
PROC: 30233K1 Transfusion of Nonautologous Frozen Plasma into Peripheral Vein, Percutaneous Approach (ICD-10-PCS; 2019-04-30)
PROC: 30233N1 Transfusion of Nonautologous Red Blood Cells into Peripheral Vein, Percutaneous Approach (ICD-10-PCS; 2019-04-30)
PROC: 0DJ08ZZ Inspection of Upper Intestinal Tract, Via Natural or Artificial Opening Endoscopic (ICD-10-PCS; principal; 2019-04-30 04:30)
PROC: 3E02340 Introduction of Influenza Vaccine into Muscle, Percutaneous Approach (ICD-10-PCS; 2019-05-01)
DX: I85.01 Esophageal varices with bleeding (principal); D62 Acute posthemorrhagic anemia; K92.0 Hematemesis; K70.31 Alcoholic cirrhosis of liver with ascites; K29.21 Alcoholic gastritis with bleeding; I10 Essential (primary) hypertension; K21.9 Gastro-esophageal reflux disease without esophagitis; F17.210 Nicotine dependence, cigarettes, uncomplicated; M19.90 Unspecified osteoarthritis, unspecified site; F10.229 Alcohol dependence with intoxication, unspecified; I86.4 Gastric varices; K75.9 Inflammatory liver disease, unspecified; Z23 Encounter for immunization
CPT/HCPCS: 36415; 36430; 71045; 80053; 80307; 81001; 82140; 82607; 82728; 82746; 82803; 82962; 83540; 83550; 83690; 83735; 84100; 84443; 85025; 85045; 85610; 85730; 86850; 86900; 86901; 86920; 87070; 93005; 93010; 94002; 96365; 96366; 96375; 96376; 99238; 99285; 99291; C9113; J0330; J0360; J0696; J2060; J2250; J2354; J2405; J2704; J3411; J3430; J3475; J3480; J3490; J7030; J7040; J7050; P9016; P9017

== ENCOUNTER 2019-08-09 11:20 | Emergency (ER) | payer MEDICARE ==
[2019-08-09] MEDS ORDERED: NORMAL SALINE 1000 ML 1,000 ML IV ONE (11:23)
[2019-08-09] MEDS ORDERED: PANTOPRAZOLE SODIUM 40 MG VIAL IV ONE (11:28)
[2019-08-09] MEDS ORDERED: OCTREOTIDE ACETATE INJ/PF 100 MCG/1 ML SDV IV ONE (11:30)
[2019-08-09] MEDS ORDERED: NORMAL SALINE 250 ML IV PRN ×3 (11:31→11:51)
[2019-08-09] MEDS ORDERED: THIAMINE HCL INJ 200 MG/2 ML VIAL IV ONE (11:41)
[2019-08-09 11:42] LABS: ABSOLUTE BASOPHILS # (AUTO) 0.1 10^3/uL (0.0-0.2); ABSOLUTE LYMPHOCYTES (AUTO) 1.4 10^3/uL (0.5-4.7); ABSOLUTE MONOCYTES (AUTO) 0.7 10^3/uL (0.1-1.4); ABSOLUTE NEUT (AUTO) 2.9 10^3/uL (1.7-8.2); BASOPHILS % (AUTO) 1.4 % (0-2); HEMATOCRIT 21.8 % (37.9-51.0); LYMPHOCYTES % (AUTO) 27.7 % (13-45); MEAN CORPUSCULAR HEMOGLOBIN 19.2 pg (27.0-33.4); MEAN CORPUSCULAR HGB CONC 29.8 g/dL (32.0-36.0); MONOCYTES % (AUTO) 13.8 % (3-13); PLATELET COUNT 147 10^3/uL (150-450); RED BLOOD COUNT 3.39 10^6/uL (4.35-5.55); RED CELL DISTRIBUTION WIDTH 21.2 % (11.5-14.0); SEGMENTED NEUTROPHILS % (AUTO) 57.1 % (42-78); TOTAL CELLS COUNTED % (AUTO) 100 %
[2019-08-09] MEDS ORDERED: PHYTONADIONE INJ 10 MG/1 ML AMPULE SUBCUT ONE (11:46)
[2019-08-09 11:51] LABS: PROTHROMBIN TIME 20.2 SEC (11.4-15.4)
[2019-08-09 11:57] LABS: ALBUMIN 2.9 g/dL (3.5-5.0); ALCOHOL 96 mg/dL (NONE DETECTED); ALKALINE PHOSPHATASE 120 U/L (38-126); ANION GAP 15 (5-19); ASPARTATE AMINO TRANSFERASE 140 U/L (17-59); BILIRUBIN,TOTAL 1.9 mg/dL (0.2-1.3); BLOOD UREA NITROGEN 18 mg/dL (7-20); CALCIUM 8.4 mg/dL (8.4-10.2); CARBON DIOXIDE 21 mmol/L (22-30); CHLORIDE 107 mmol/L (98-107); CREATINE KINASE 137 U/L (55-170); POTASSIUM 4.2 mmol/L (3.6-5.0); TOTAL PROTEIN 6.4 g/dL (6.3-8.2)
--- NOTE | 2019-08-09 11:57 | RADIOLOGY REPORT (SQ) ---
EXAM DESCRIPTION: CHEST SINGLE VIEW IMAGES COMPLETED DATE/TIME: 08/09/2019 11:42 am REASON FOR STUDY: ETOH, vomiting blood COMPARISON: 04/30/2019 EXAM PARAMETERS: NUMBER OF VIEWS: One view. TECHNIQUE: Single frontal radiographic view of the chest acquired. RADIATION DOSE: NA LIMITATIONS: None. FINDINGS: LUNGS AND PLEURA: No opacities, masses or pneumothorax. No pleural effusion. MEDIASTINUM AND HILAR STRUCTURES: No masses. Contour normal. HEART AND VASCULAR STRUCTURES: Heart normal in size. Normal vasculature. BONES: No acute findings. HARDWARE: None in the chest. OTHER: No other significant finding. IMPRESSION: NO ACUTE RADIOGRAPHIC FINDING IN THE CHEST. TECHNICAL DOCUMENTATION: JOB ID: [id number] 2010 [employer]- All Rights Reserved Reading location - IP/workstation name: [email or web address]
[2019-08-09 11:59] LABS: GLUCOSE 61 mg/dL (75-110)
[2019-08-09] MEDS ORDERED: DEXTROSE 50%-WATER 25 GM/50 ML DISP.SYRIN IV ONE ×2 (12:04→12:05)
[2019-08-09 12:11] LABS: ANISOCYTOSIS 3+; HYPOCHROMASIA 2+; OVALOCYTES SLIGHT; PLATELET COMMENT DECREASED; POIKILOCYTOSIS 3+; TARGET CELLS 3+
[2019-08-09 12:12] LABS: HEMOGLOBIN 6.5 g/dL (13.5-17.0); MEAN CORPUSCULAR VOLUME 64 fl (80-97)
[2019-08-09] MEDS ORDERED: MAGNESIUM SULFATE/D5W 1 GM/100 ML RTUPB IV ONE (12:13)
--- NOTE | 2019-08-09 12:44 | Operative Report ---
Nonrecallable Operative Report DATE OF SURGERY: 08/09/19 PREOPERATIVE DIAGNOSIS: Exsanguinating hemorrhage due to gastric/esophageal varices POSTOPERATIVE DIAGNOSIS: Same as above OPERATION: Insertion of esophageal/gastric (Daryn) tube for tamponade of variceal bleeding SURGEON: LISA LERNER ANESTHESIA: Other - None TISSUE REMOVED OR ALTERED: None COMPLICATIONS: None apparent ESTIMATED BLOOD LOSS: None PROCEDURE: Drains/implants: Daryn tube. Procedure in detail: Due to life-threatening, exsanguinating hemorrhage, emergency consent was obtained. The patient was sat up in the emergency department, the Daryn tube was inserted into the patient's nasopharynx, after being coated liberally with K-Y jelly. The tube was inserted into the esophagus, and down into the stomach. The entire length of the tube was inserted. Gastric contents were found within the gastric suctioning lumen of the tube. This confirmed the tube to be within the stomach. 180 cc of air was then insufflated into the gastric balloon. The tube was pulled, the tube appeared to stop at approximately 40 cm at the nare. Next, an additional 120 cc of air was instilled into the gastric balloon, making the total 300 cc of air within the gastric balloon. The tube was then taped to a football helmet to secure the Daryn tube, and maintain adequate tension. The gastric lumen tube was attached to intermittent, low suction. At this time the procedure was concluded. Care of the patient was transferred back to the emergency room physician. Condition: Critical.
[2019-08-09] MEDS ORDERED: NORMAL SALINE 500 ML with OCTREOTIDE ACETATE 500 MCG IV PRN ×2 (12:55)
[2019-08-09 13:06] LABS: APPEARANCE,URINE CLEAR; BILIRUBIN,URINE NEGATIVE (NEGATIVE); COLOR,URINE YELLOW; GLUCOSE, URINE NEGATIVE (NEGATIVE); KETONES,URINE 20 mg/dL (NEGATIVE); LEUKOCYTE ESTERASE,URINE NEGATIVE (NEGATIVE); NITRITE,URINE NEGATIVE (NEGATIVE); PROTEIN,URINE NEGATIVE (NEGATIVE)
--- NOTE | 2019-08-09 13:07 | ER Document Report ---
Entered by SANDRA OORPEZA SCRIBE 08/09/19 1122 Acting as scribe for:BRUCE GENAO MD ED General - General Chief Complaint: Unresponsive Stated Complaint: UNRESPONSIVE Mode of Arrival: Medic Information source: Patient, Emergency Med Personnel, [facility] Records Notes: 64-year-old male alcoholic with known esophageal and gastric varices presents to the emergency room for unresponsiveness and vomiting blood. He is responsive and is quite intoxicated during his initial work-up, he is found to have black loose stools, and later began vomiting dark to black-colored blood. On initial presentation, orders were placed for Sandostatin, Protonix, AquaMEPHYTON, thiamine, packed RBCs, fresh frozen plasma. I did discuss the case with Dr. Kenny. The patient was in our intensive care unit in April of this year with the same problem, at that time he was urgently scoped and found to have the gastric and esophageal varices. Dr. Kenny states that the patient cannot stay here because they are not equipped to manage variceal bleeding. TRAVEL OUTSIDE OF THE [place] IN LAST 30 DAYS: No - Related Data Allergies/Adverse Reactions: No Known Allergies Allergy (Verified 04/29/19 18:59) Past Medical History - General Information source: Relative, [facility] Records Cannot obtain history due to: Other - medical condition - Social History Smoking Status: Current Every Day Smoker Cigarette use (# per day): Yes Chew tobacco use (# tins/day): No Smoking Education Provided: No Frequency of alcohol use: Heavy Drug Abuse: None Occupation: unemployed Lives with: Spouse/Significant other Family History: COPD, Hypertension - Past Medical History Cardiac Medical History: Reports: Hx Hypertension GI Medical History: Reports: Hx Gastroesophageal Reflux Disease, Hx Hepatitis, Other - esophogeal and gastric varicies Musculoskeletal Medical History: Reports Hx Arthritis, Reports Hx Gout - QUESTIONABLE Infectious Medical History: Reports: Hx Hepatitis - Immunizations Immunizations up to date: Yes Hx Diphtheria, Pertussis, Tetanus Vaccination: No Review of Systems - Review of Systems -: Yes ROS unobtainable due to patient's medical condition Physical Exam - Vital signs Vitals: Temp 96.2 F L 08/09/19 11:20 - General General appearance: Other - reported to be unresponsive but when being transferred from wheelchair to bed he opens his eyes and says "oww" In distress: Severe - HEENT Head: Normocephalic, Atraumatic Eyes: Normal - Respiratory Respiratory status: No respiratory distress Chest status: Nontender Breath sounds: Normal - Cardiovascular Rhythm: Tachycardia Heart sounds: Normal auscultation - Abdominal Inspection: Other - Actively vomiting dark red/black emesis. Large amounts of black liquid stool. - Extremities General upper extremity: Normal inspection, Normal ROM General lower extremity: Normal inspection, Normal ROM - Neurological Neuro grossly intact: Yes Cognition: Confused Orientation: AAOx4 - Psychological Associated symptoms: Other - unable to assess - Skin Skin Temperature: Warm Skin Moisture: Dry Skin Color: Normal Course - Re-evaluation Re-evalutation: 08/09/19 13:11 Patient initially presented tachycardic and hypotensive. At this time he has had 2 units of packed red cells along with several medications. The Daryn tube has been placed. The patient is now hypertens dariusz with heart rate of 116 and a systolic pressure of 175. Reviewing his records shows that he required regular antihypertensive medications while he was in the intensive care unit with the same problem. He will receive Lopressor 5 mg IV at this time. - Vital Signs Vital signs: Temp Pulse Resp BP Pulse Ox 98.6 F 108 H 20 173/92 H 100 08/09/19 15:25 08/09/19 15:25 08/09/19 15:25 08/09/19 15:25 08/09/19 15:25 - Laboratory Result Diagrams: 08/09/19 11:20 08/09/19 11:20 Laboratory results interpreted by me: 08/09/19 08/09/19 08/09/19 11:20 11:20 11:20 RBC 3.39 L Hgb 6.5 L Hct 21.8 L MCV 64 L MCH 19.2 L MCHC 29.8 L RDW 21.2 H Plt Count 147 L [place] % (Auto) 13.8 H PT 20.2 H Carbon Dioxide 21 L Glucose 61 L POC Glucose Magnesium Total Bilirubin 1.9 H Direct Bilirubin 1.0 H AST 140 H Albumin 2.9 L Urine Ketones Urine Urobilinogen Crossmatch 08/09/19 08/09/19 08/09/19 11:20 11:20 12:15 RBC Hgb Hct MCV MCH MCHC RDW Plt Count [place] % (Auto) PT Carbon Dioxide Glucose POC Glucose Magnesium 1.5 L Total Bilirubin Direct Bilirubin AST Albumin Urine Ketones 20 H Urine Urobilinogen 2.0 H Crossmatch See Detail 08/09/19 15:13 RBC Hgb Hct MCV MCH MCHC RDW Plt Count [place] % (Auto) PT Carbon Dioxide Glucose POC Glucose 124 H Magnesium Total Bilirubin Direct Bilirubin AST Albumin Urine Ketones Urine Urobilinogen Crossmatch - Diagnostic Test Radiology reviewed: Image reviewed, Reports reviewed - Chest x-ray does not show acute radiographic changes. - EKG Interpretation by Me EKG shows normal: Sinus rhythm, Seale, QRS Complexes, ST-T Waves. abnormal: Intervals - Prolonged QT interval Rate: Tachycardia - 103 - Consults Dr. Vázquez Consulted provider: other - Will accept at [facility]. Later got a call back provided and the decided to send the patient to the intensive care unit because the unit he was going to did not want to take care of a Daryn tube. I discussed the case with the ICU attending and she accepted the patient. Critical Care Note - Critical Care Note Total time excluding time spent on procedures (mins): 65 Discharge - Discharge Clinical Impression: Alcohol abuse, Acute blood loss anemia, Esophageal and gastric varices GI bleed Qualifiers: GI bleed type/associated pathology: gastritis Gastritis type: alcoholic Qualified Code(s): K29.21 - Alcoholic gastritis with bleeding Hypertension Qualifiers: Hypertension type: essential hypertension Qualified Code(s): I10 - Essential (primary) hypertension Condition: Fair Disposition: [facility] I personally performed the services described in the documentation, reviewed and edited the documentation which was dictated to the scribe in my presence, and it accurately records my words and actions.
[2019-08-09] MEDS ORDERED: METOPROLOL TARTRATE PF/INJ 5 MG/5 ML SDV IV ONE (13:11)
[2019-08-09] MEDS ORDERED: FENTANYL CITRATE INJ/PF 100 MCG/2 ML AMPUL IV ONE ×2 (13:23→13:26)
[2019-08-09] MEDS ORDERED: ONDANSETRON 4 MG TAB.RAPDIS PO ONE (13:23)
[2019-08-09] MEDS ORDERED: ONDANSETRON HCL INJ/PF 4 MG/2 ML SDV ONE (13:26)
[2019-08-09] MEDS ORDERED: ONDANSETRON HCL INJ/PF 4 MG/2 ML SDV IV ONE (13:27)
[2019-08-09] MEDS ORDERED: OCTREOTIDE ACETATE INJ/PF 100 MCG/1 ML SDV ONE (13:43)
[2019-08-09 15:25] VITALS: BP 173/92
--- NOTE | 2019-08-10 11:08 | EKG REPORT ---
SEVERITY:- ABNORMAL ECG - SINUS TACHYCARDIA PROLONGED QT INTERVAL : Confirmed by: Crystal Limon 10-Aug-2019 11:07:29
[2019-08-11 11:39] LABS: PATH REVIEW PATHOLOGIST REVIEWED
== END 2019-08-09 15:45 | disposition short-term general hospital (02) ==
LOC: ER 11:20
DX: K29.21 Alcoholic gastritis with bleeding (principal); I85.01 Esophageal varices with bleeding; I86.4 Gastric varices; F10.20 Alcohol dependence, uncomplicated; I10 Essential (primary) hypertension; R19.5 Other fecal abnormalities; R19.7 Diarrhea, unspecified; R00.0 Tachycardia, unspecified; I95.9 Hypotension, unspecified; F17.210 Nicotine dependence, cigarettes, uncomplicated
CPT/HCPCS: 93005; 86900; 86901; 36415; 36430; 86850; 82962; 80307; 82550; 83690; 83735; 85025; 85610; 82270; 80053; 81001; 84484; 86920; 71045; 93010; P9017; P9016; J3490 ×2; J3010; A9270; J3430; J3475; C9113; J3411; J2405; J7030; J7050; 96361; 96365; 96372; 96375; 96376; 99291; J2354